=== PATIENT | male | born 1940 | race Caucasian/White ===

== ENCOUNTER 2016-08-27 10:45 | Inpatient (IN) | payer OTHER ==
[2016-08-27 11:31] LABS: MANUAL DIFF NEEDED? NO
[2016-08-27 11:37] LABS: BASO% 0.3 % (0.0-0.8); EOS# 0.28 X1000 (0.0-0.7); EOS% 3.7 % (0.0-10.0); HEMATOCRIT 42.5 % (42.0-52.0); HEMOGLOBIN 13.5 g/dL (14.0-18.0); IMM GRAN# 0.06 X1000 (0.0-0.04); IMM GRAN% 0.8 % (0.0-0.5); LYMPH# 0.82 X1000 (1.2-3.4); LYMPH% 10.7 % (20.5-51.1); MCHC 31.8 g/dL (33-37); MCV 91.2 FL (81-99); MONO% 9.1 % (1.7-9.3); MPV 12.7 FL (7.4-10.4); NEUT% 75.4 % (42.2-75.2); PLT 147 X1000 (130-400); RBC 4.66 XMIL (4.7-6.1)
[2016-08-27 11:49] LABS: INR 1.07; PROTIME 11.4 Seconds (9.2-11.7)
[2016-08-27 12:00] LABS: ALBUMIN 4.3 g/dL (3.5-5.0); CALCIUM 9.9 mg/dL (8.8-10.2); POTASSIUM 4.3 mmol/L (3.5-5.1); TOTAL BILIRUBIN 0.26 mg/dL (0.20-1.00); TOTAL PROTEIN 7.2 g/dL (6.3-8.3)
--- NOTE | 2016-08-27 12:49 | Diag Imaging Result Document ---
PROCEDURE NAME: HEAD/C-SPINE W/O CONTRAST - 08/27/2016 CT BRAIN AND CERVICAL SPINE WITHOUT CONTRAST. TECHNIQUE: Dose reduction technique not used. COMPARISON: Brain is compared to 03/19/2011. FINDINGS: No parenchymal hemorrhage. No epidural or subdural hematoma. No subarachnoid hemorrhage. No skull fracture. There is atrophy with chronic microvascular ischemic changes. No hydrocephalus. No sinus opacification and no air-fluid levels. IMPRESSION: No hemorrhage. No injury. CERVICAL SPINE WITHOUT CONTRAST. FINDINGS: There is reversal of the normal cervical spine. Degenerative changes are found throughout the cervical spine. No precervical soft tissue swelling. No subluxation. No fracture. IMPRESSION: No acute bony injury. A preliminary report was given at 12:15pm. [facility]
--- NOTE | 2016-08-27 12:50 | Diag Imaging Result Document ---
PROCEDURE NAME: CHEST-1 VIEW - 08/27/2016 CHEST SINGLE VIEW: COMPARISON: 10/28/2015. FINDINGS: There are sternal wires and surgical clips. The lungs are well expanded. The heart is mildly prominent. The vessels are not distended. There is a granuloma in the left lung. No contusions or pneumothoraces. The mediastinum is not widened. IMPRESSION: No injury.
--- NOTE | 2016-08-27 12:50 | Diag Imaging Result Document ---
PROCEDURE NAME: THORACIC SPINE - 08/27/2016 THORACIC SPINE AP AND LATERAL, 4 VIEWS: FINDINGS: There is mild to moderate scoliosis. Degenerative bone spurring is found throughout the thoracic spine. No compressed vertebra. No subluxation. IMPRESSION: No acute bony injury.
--- NOTE | 2016-08-27 12:53 | Diag Imaging Result Document ---
PROCEDURE NAME: KNEE 1-2 VIEWS-LEFT - 08/27/2016 LEFT KNEE 2 VIEWS: FINDINGS: There has been prior orthopedic replacement of the left knee. Good alignment to the femoral and tibial components. No acute fracture or dislocation. There are multiple surgical clips in the soft tissues of the distal thigh. IMPRESSION: No acute bony injury.
--- NOTE | 2016-08-27 12:59 | Diag Imaging Result Document ---
PROCEDURE NAME: PELVIS - 08/27/2016 PELVIS 2 VIEWS: FINDINGS: No fracture. No dislocation. IMPRESSION: No acute bony injury.
[2016-08-27] MEDS ORDERED: MORPHINE IV ONE (13:22)
[2016-08-27] MEDS ORDERED: ZOFRAN ONE (13:29)
--- NOTE | 2016-08-27 16:59 | Diag Imaging Result Document ---
PROCEDURE NAME: EXTREM LOWER W/O CONTRAST - 08/27/2016 CT LEFT KNEE WITHOUT CONTRAST. TECHNIQUE: Dose reduction technique not used. FINDINGS: There has been prior orthopedic replacement of the left knee. There is good alignment to the femoral and tibial components. These prostheses create a large amount of metallic artifact about the knee. No acute fracture identified although films are suboptimal due to the metallic artifact. Moderate atherosclerosis. IMPRESSION: Large amount of metallic artifact created from prior knee replacement. No acute bony injury identified on this limited exam. A preliminary report was given at 4:21 p.m. [facility]
--- NOTE | 2016-08-27 17:04 | PROVIDER DOCUMENTATION ---
[id number] - General Chief Complaint: Fall Stated Complaint: FALL, LT. KNEE PAIN/HIP PAIN Time Seen by Provider: 08/27/16 11:00 Source: patient, family Allergies/Adverse Reactions: Patient Allergies Allergy/AdvReac Type Severity Reaction Status Date / Time vancomycin Allergy RASH Verified 08/27/16 11:21 duloxetine HCl * AdvReac Severe seizures Verified 08/27/16 11:21 [From Cymbalta] Home Medications: Ezetimibe [Zetia] 10 mg PO DAILY 12/21/12 Levothyroxine [Synthroid] 100 microgm PO DAILY 12/21/12 PRAVAstatin [Pravachol] 80 mg PO QHS 12/21/12 Aspirin 81 mg PO DAILY 10/04/13 Chlorthalidone 50 mg PO DAILY 04/08/14 Fosinopril Sodium 40 mg PO DAILY 04/08/14 Glyburide 10 mg PO DAILY 04/08/14 Desvenlafaxine Succinate [Pristiq ER] 100 mg PO DAILY 10/28/15 Lorazepam [Ativan] 0.5 mg PO BID 10/28/15 Penicillin V Potassium [Pen Vk] 500 mg PO BID 10/28/15 Alfuzosin E.r. [Uroxatral] 10 mg PO QHS 12/02/15 Celecoxib [Celebrex] 200 mg PO QAM 12/02/15 Digoxin 125 mcg PO DAILY 12/02/15 Hydrocodone/Acetaminophen [[place] 10-325 Tablet] 1 each PO TID PRN PRN 12/02/15 Metoprolol Succinate E.r. [Toprol Xl] 50 mg PO DAILY 01/04/16 Furosemide [Lasix] 40 mg PO BID 08/27/16 Insulin Glargine [Lantus] 50 unit SUBQ QAM 08/27/16 Insulin Glargine [Lantus] 50 unit SUBQ QHS 08/27/16 Sitagliptin Phosphate [Januvia] 100 mg PO DAILY 08/27/16 - History of Present Illness -Trauma Nature of Presenting Problem: Tripped and fell at 0830 today in front of house and hit head on asphalt. L knee has been bothering him and felt unstable. Has appointment to see Dr Rausch next week. On [facility] for atrial fibrillation. Location of Pain/Injury: reports: head, back, lower extremity (L knee) Head Injury Location: reports: occipital Pain Radiation: reports: back, chest (back pain radiates into chest) Quality of Pain: reports: sharp Severity: reports: severe (L knee problems for several weeks. All other symptoms started today) Method of Injury: reports: fall Loss of Consciousness: no loss of consciousness Remembers:: reports: injury, coming to hospital Injury Associated Symptoms: reports: back/neck pain, unable to bear weight, other (L knee pain) Locality of Occurance: Home Review of Systems - Adult - REVIEW OF SYSTEMS - ADULT Constitutional: reports: no symptoms reported Eyes: reports: blurred vision Ears, Nose, Mouth & Throat: reports: no symptoms reported Cardiovascular: reports: no symptoms reported, other ( felt slightly dizzy at the time he fell). denies: chest pain, palpitations Hematologic/Lymphatic: reports: no symptoms reported Allergic/Immunologic: reports: no symptoms reported All Other Systems: Reviewed and Negative Past History - Adult - PAST MEDICAL HISTORY-ADULT Review of Records: reports: Nursing Assessment Review, Medications Reviewed Major Childhood Illnesses: reports: history unknown Cardiovascular: reports: HTN, hyperlipidemia Respiratory: reports: sleep apnea Genitourinary: reports: kidney stones Musculoskeletal: reports: chronic pain Neurological: reports: Seizures/Epilepsy Endocrine/Immune: reports: cancer (prostate), Diabetes, thyroid disorder Additional History: sleep apnea, gall stones, obesity, arthritis, neuropathy, - PRIOR SURGERIES/PROCEDURES Surgical/Procedure History: reports: CABG, joint replacement, back/neck, other ( jhonatan TKA, back, throat for sleep apnea) - IMMUNIZATION STATUS Childhood Immunizations: See Nurse Assessment Flu Vaccine: See Nurse Assessment Physical Exam-Injury Related - Physical Exam-Injury Related Initial Vital Signs Reviewed: Yes General Appearance: alert, moderate distress Eyes: PERRL/EOMI Head, Ears, Nose, Mouth & Throat: normal ENT inspection Neck: C-spine tenderness, tender lateral Respiratory: chest non-tender, lungs clear, normal breath sounds, no pleuratic chest pain Cardiovascular: regular rate, rhythm, no edema, no gallop, no murmur Abdominal Exam: normal bowel sounds, non tender, soft, no organomegaly Rectal Exam: deferred Lymphatic: no adenopathy Back Exam: normal inspection, no CVA tenderness, vertebral tenderness (lower thoracic spine mildly tender) Extremity: tenderness (over L knee, without abrasion or effusion) Integumentary: normal color, warm/dry Neurologic: grossly normal, no motor/sensory deficits Progress - PLAN OF CARE/RESULTS Progress/Plan/Lab Results: Laboratory Tests 08/27/16 08/27/16 08/27/16 11:16 11:16 11:16 WBC 7.67 RBC 4.66 L Hgb 13.5 L Hct 42.5 MCV 91.2 MCH 29.0 MCHC 31.8 L RDW Std Deviation 16.6 H Plt Count 147 MPV 12.7 H Immature Gran % (Auto) 0.8 H Neut % (Auto) 75.4 H Lymph % (Auto) 10.7 L [place] % (Auto) 9.1 Eos % (Auto) 3.7 Baso % (Auto) 0.3 Immature Gran # (Auto) 0.06 H Neut # 5.79 Lymph # 0.82 L [place] # 0.70 H Eos # 0.28 Baso # 0.02 PT 11.4 INR 1.07 Sodium 141 Potassium 4.3 Chloride 97 L Carbon Dioxide 26 Anion Gap 18 BUN 59 H Creatinine 2.9 H Estimated GFR/1.73 m2 21 BUN/Creatinine Ratio 20 Glucose 90 Calculated Osmolality 297 Calcium 9.9 Total Bilirubin 0.26 AST 27 ALT 20 Alkaline Phosphatase 63 Total Protein 7.2 Albumin 4.3 Globulin 2.9 Albumin/Globulin Ratio 1.5 Blood Type Antibody Screen 08/27/16 11:16 WBC RBC Hgb Hct MCV MCH MCHC RDW Std Deviation Plt Count MPV Immature Gran % (Auto) Neut % (Auto) Lymph % (Auto) [place] % (Auto) Eos % (Auto) Baso % (Auto) Immature Gran # (Auto) Neut # Lymph # [place] # Eos # Baso # PT INR Sodium Potassium Chloride Carbon Dioxide Anion Gap BUN Creatinine Estimated GFR/1.73 m2 BUN/Creatinine Ratio Glucose Calculated Osmolality Calcium Total Bilirubin AST ALT Alkaline Phosphatase Total Protein Albumin Globulin Albumin/Globulin Ratio Blood Type A POSITIVE Antibody Screen NEGATIVE - REASSESSMENT Reassessment #1 Time Reassessed: 14:00 Reassessment Comment: unable to stand- check CTknee Reassessment #2 Time Reassessed: 16:00 Reassessment Comment: unable to stand, unsafe at home pt and family want admit, Dr Luna to see pt - EKG 1 Time of EKG reading by physician:: 14:00 EKG Read and Signed by:: Heather Ordonez EKG Interpretation (*Must complete 3 of following elements*): Abnormal Rate: 65 Rhythm: junctional rhythm [place]: normal QRS: normal ST Wave: depressed, non-specific ST changes (seen on prior ekg) - CONSULTS/PCP/HOSPITALIST Notification #1 *Consult/PCP/Hospitalist*: Dr aRyo Time Discussed: 16:00 Reason/Comments: unsafe at home, unable to stand, disscussed unsure insurance coverage Consult Disposition: Will see in ED, Admit - CHANGE OF SHIFT REPORT (ED Provider) Tentative Impression of Patient: thoracic spine strain, L knee contusion, head injury Departure - Departure Time of Disposition Order: 16:00 DIAGNOSIS: Knee contusion, Head injury, Back strain Disposition: ADMITTED INPATIENT 09 Certified Medical Emergency: Emergent Condition: Fair
[2016-08-27] MEDS ORDERED: NORCO-10 PO PRN (17:19)
[2016-08-27] MEDS: NORCO-7.5 PO PRN (20:56)
[2016-08-27] MEDS: UROXATRAL PO SCH (20:57)
[2016-08-27] MEDS: PRAVACHOL PO SCH (20:57)
[2016-08-27] MEDS: ATIVAN PO SCH (20:57)
[2016-08-27] MEDS: ELIQUIS PO SCH (20:57)
[2016-08-27] MEDS: PEN VK PO SCH (20:58)
--- NOTE | 2016-08-27 21:13 | HISTORY AND PHYSICAL ---
HISTORY OF PRESENT ILLNESS: Mr. Hernandez is a 76-year-old, presented to emergency room. He hurt his knee and he cannot get up. He fell at home and could not get up. It took him an hour and a half. His daughters brought him here to the emergency room. His left knee is very sore. Very heavy man. He recently twisted that knee and just not able to ambulate he lives alone. He has. PAST MEDICAL HISTORY: 1. Coronary artery disease. 2. Diabetes mellitus type 2. 3. Morbid obesity. 4. Hypothyroidism. 5. Obstructive sleep apnea. 6. Dyslipidemia. 7. Chronic back pain. 8. He has had recurrent cellulitis and he is put on just penicillin every day which he has done for last couple years. 9. Atrial fibrillation. 10. Small finger on his right hand fracture with H pin placed. 11. He has a sleep apnea machine at night. 12. Bilateral cellulitis, no active cellulitis at this time. PAST SURGICAL HISTORY: 1. CABG x3. 2. Bilateral total knee arthroplasties. 3. Triple bypass. 4. Back surgery 20 years ago. 5. Sleep apnea. FAMILY HISTORY: Is noncontributory. SOCIAL HISTORY: . He has very attentive 2 daughters and he also has a son, 2 daughters were at the bedside. ALLERGIES: VANCOMYCIN, CYMBALTA CAUSES SEIZURES ACCORDING TO REPORT. REVIEW OF SYSTEMS: General: He did not give any report of chest pain or fever or chills. He has generalized myalgias and arthralgias. He is hurting in his back and he is hurting in his left knee specifically. Respiratory: No increased work of breathing or dyspnea. Cardiovascular: Denies any chest pain. GI/: Does not complain of any new symptoms, change in bowels, gross hematuria. Musculoskeletal/Neurologic: Just general aching and myalgia. PHYSICAL EXAM TODAY: Vital signs: Temp 98.1 degrees, pulse 58, respirations 18, blood pressure 105/46. Pupils: Equal, round. Lungs: Clear in all lung aranda. Cardiovascular: Regular rhythm, rate without murmur or S3. Abdomen: Soft. Skin: Warm and dry. O2 saturations 96%. LAB: White count 7670, hematocrit 42, platelet count 147,000. Sodium 141, potassium 4.3, chloride 97, bicarb 26, BUN 59, creatinine 2.9. Transaminases unremarkable. Calcium 9.9, albumin was 4.3. Looking at his baseline creatinine I see where it was 1.5 back in March 2014, it was 2.0 in April 2015 and 2.0 again in December 2015 so I think is baseline is about 1.8-2.0. LIST OF MEDICATIONS: Lantus Pen 50 units 2 times a day, Januvia 100 mg q.a.m., digoxin 125 mcg daily, chlorthalidone 50 mg each morning, furosemide 40 mg in the morning and 4 p.m., levothyroxine 100 mcg daily, Pristiq ER 100 mg each morning, aspirin 81 mg in the morning, Zetia 10 mg in the morning, [place] 10/325 at 8 and 4 and bedtime, glyburide 5 mg 2 tablets every morning so I think that is 10 mg in the morning, metoprolol ER half of 100 mg or 50 mg every morning, Eliquis 5 mg 1 tablet q.a.m., fosinopril which is an GODWIN inhibitor 40 mg q.a.m., Celebrex 200 mg every morning, lorazepam 0.5 mg in the morning and 4 p.m., penicillin 500 mg q.a.m. at bedtime, pravastatin 80 mg bedtime, alfuzosin ER 10 mg each bedtime, trazodone 100 mg at bedtime. ALLERGIES: HE GETS RED MAN SYNDROME WHEN GIVEN VANCOMYCIN AND DULOXETINE APPARENTLY CAUSES SEIZURES. ASSESSMENT AND PLAN: 1. General weakness and deconditioning. Left knee pain, recent knee strain, unable to walk and complicated by his morbid obesity. He will need to come in the hospital. Will need to see if we can get him set up to go to rehab in hopes to get him back to independent living. 2. Morbid obesity. 3. Diabetes mellitus type 2. Will pattern his sugars, put him on sliding scale, continue his current medicine including Lantus, Januvia, glyburide. 4. He is on Eliquis and he is on digitalis and so I am assuming there is a history of atrial fibrillation. I will try and question for further past medical history but will continue these medications. 5. He has had both knees arthroplasty left knee recently hurt, no sign of fracture radiographically, will ask orthopedics to evaluate as well. He is in obvious pain cannot support weight on it at this time. 6. Coronary artery disease status post triple bypass surgery. 7. History of sleep apnea. 8. Yeah I so see that history of atrial fibrillation. I think he has had episodes of rapid ventricular rate in the past.
[2016-08-28] MEDS: LANTUS SUBQ SCH ×3 (00:17→23:50)
[2016-08-28] MEDS: HUMULIN R SUBQ SCH ×5 (00:25→23:51)
[2016-08-28] MEDS: NORCO-7.5 PO PRN ×5 (01:08→21:40)
[2016-08-28 06:32] LABS: MANUAL DIFF NEEDED? NO
[2016-08-28 06:44] LABS: INR 1.09; PROTIME 11.6 Seconds (9.2-11.7); PTT 26.4 Seconds (22.0-36.0)
[2016-08-28 06:46] LABS: HEMOGLOBIN A1C 8.1 % (4.8-6.0)
[2016-08-28 06:51] LABS: BASO% 0.1 % (0.0-0.8); EOS# 0.28 X1000 (0.0-0.7); EOS% 4.2 % (0.0-10.0); HEMATOCRIT 36.1 % (42.0-52.0); HEMOGLOBIN 11.3 g/dL (14.0-18.0); LYMPH# 0.66 X1000 (1.2-3.4); LYMPH% 9.9 % (20.5-51.1); MCHC 31.3 g/dL (33-37); MCV 92.6 FL (81-99); MONO# 0.76 X1000 (0.11-0.59); MONO% 11.4 % (1.7-9.3); MPV 12.4 FL (7.4-10.4); NEUT% 74.4 % (42.2-75.2); PLT 137 X1000 (130-400)
[2016-08-28 07:12] LABS: FREE T4 0.77 ng/dL (0.93-1.70)
[2016-08-28 07:15] LABS: ALBUMIN 3.5 g/dL (3.5-5.0); CALCIUM 8.9 mg/dL (8.8-10.2); MAGNESIUM 2.5 mg/dL (1.5-2.7); POTASSIUM 4.6 mmol/L (3.5-5.1); TOTAL BILIRUBIN 0.34 mg/dL (0.20-1.00); TOTAL PROTEIN 6.3 g/dL (6.3-8.3)
[2016-08-28] MEDS: PRILOSEC PO SCH (07:42)
[2016-08-28] MEDS: DIABETA PO SCH (09:03)
[2016-08-28] MEDS: PEN VK PO SCH ×2 (09:03→21:41)
[2016-08-28] MEDS: ELIQUIS PO SCH ×2 (09:04→23:49)
[2016-08-28] MEDS: SYNTHROID PO SCH (09:04)
[2016-08-28] MEDS: TOPROL XL PO SCH (09:04)
[2016-08-28] MEDS: JANUVIA PO SCH (09:04)
[2016-08-28] MEDS: ZETIA PO SCH (09:05)
[2016-08-28] MEDS: LANOXIN PO SCH (09:05)
[2016-08-28] MEDS: MONOPRIL PO SCH (09:05)
[2016-08-28] MEDS: ASPIRIN PO SCH (09:05)
[2016-08-28] MEDS: PRISTIQ ER PO SCH (09:05)
[2016-08-28] MEDS: ATIVAN PO SCH ×2 (09:13→23:52)
--- NOTE | 2016-08-28 16:33 | PROGRESS NOTE ---
DATE: 08/28/2016 SUBJECTIVE: Sitting up on the side of the bed. His left knee is still pretty sore, cannot bear weight on it. There is circumferential swelling in that left knee. OBJECTIVE: Vital signs: Temp 98.1 degrees, pulse 60, respirations 18, blood pressure 105/39. Lungs: Clear in all lung aranda. Cardiovascular: Regular rhythm and rate without murmur or S3. Abdomen: Soft. Skin: Warm and dry. Intake and output: Good urine output. LAB: Reviewed from today. White count 6,680, hematocrit 36, platelet count 137,000. Blood sugars 166, 249. ASSESSMENT: 1. General weakness. 2. Deconditioning. 3. Left knee pain. Unable to walk and bear weight. 4. Obesity. PLAN: A CT of the lower extremity done yesterday, large amount of metallic artifact created from prior knee replacement. No acute injury identified. Son was asking about the possibility of an MRI of his knee. I told him we will wait. I do know if he is eligible for that. Dr. Raymond is the 1 who operated on both knees so we can see what he says about that. I think he is going to need physical therapy. We are going to have to encourage him to pursue some weight loss as well. In looking over his medications, I do not see any changes. His legs look good. No flare-up of cellulitis. Blood pressures appear well controlled. His appetite is good; apparently he is eating well.
[2016-08-28] MEDS: PRAVACHOL PO SCH (21:42)
[2016-08-28] MEDS: UROXATRAL PO SCH (21:42)
--- NOTE | 2016-08-28 22:35 | CONSULTATION ---
DATE OF CONSULTATION: 08/28/2016 CHIEF COMPLAINT: Left knee pain after a fall. HISTORY: Patient reports that he has experienced debilitating left knee pain since a fall that occurred yesterday morning. He has been unable to ambulate. He presented to the emergency department and was evaluated. He has had a x-ray done as well as a CT done. He has a history of a total knee arthroplasty done greater than [address] Breen. He reports that knee has been in good condition until about 6 months ago when he started having some pain and difficulties ambulating. He actually had an appointment to see Dr. Rausch next week but experienced the fall that was reported yesterday morning and he has been unable to ambulate since. He complains of mostly anterior knee pain. He has undergone x-ray and CT both of which were negative. He reports no fevers or chills or suggestions of history of any type of infection around this prosthesis. PAST MEDICAL HISTORY: He has had coronary artery disease, diabetes mellitus type 2, obesity, hypothyroidism, obstructive sleep apnea, dyslipidemia, chronic back pain. He has had a history of cellulitis, atrial fibrillation, hand fracture which required pinning. Has had coronary artery bypass grafting surgery x3. He has had bilateral total knee arthroplasties. He has had a back surgery greater than 20 years ago. SOCIAL HISTORY: He is a . He has a son who is at the bedside with him. ALLERGIES: VANCOMYCIN, CYMBALTA. REVIEW OF SYSTEMS: He denies recent cold, cough, fevers, chills, chest pain, shortness of breath. He has no suggestion this was a syncopal episode that he had yesterday. EXAM: General: Pleasant male who is in no distress. HEENT: Conjunctivae pink. Mucous membranes are moist. Neck: Supple without JVD. Heart: Regular. Lungs: His respirations are nonlabored. Extremities: His left knee reveals ecchymosis to the anterior knee. He has no bony tenderness along the distal femur or along the proximal tibia. He has no pain along the patella. The quad tendon has a defect at its attachment at the superior pole of patella. There is no pain or defect noted in the patellar ligament. When I asked him to perform a straight leg raise he is able to initiate this but the knee immediately goes into flexion and he has the inability to extend the knee with quad mechanism. Neurological: He is alert, oriented. ASSESSMENT/PLAN: Left leg quad tendon rupture. This was not seen on CT or x-ray. CT did not show it probably because of the artifact from the total knee arthroplasty. Will ask radiology to perform a musculoskeletal ultrasound of the quad tendon tomorrow to verify rupture. This will need surgical repair. Will keep him NPO after midnight. Dr. Rausch or group will evaluate him tomorrow.
[2016-08-29] MEDS: NORCO-7.5 PO PRN ×3 (01:52→10:00)
--- NOTE | 2016-08-29 05:54 | EKG Report ---
Test Performed on : 08/28/2016 06:17:10 AM Test Reason : fall;cardiac hx Blood Pressure : / mmHG Vent. Rate : 068 BPM Atrial Rate : 258 BPM P-R Int : 000 ms QRS Dur : 102 ms QT Int : 388 ms P-R-T Axes : 000 066 255 degrees QTc Int : [address] & T wave abnormality, consider inferior ischemia ST & T wave abnormality, consider anterolateral ischemia Abnormal ECG When compared with ECG of 27-AUG-2016 12:18, (Unconfirmed) Current undetermined rhythm precludes rhythm comparison, needs review Confirmed by Linda Thornton MD ([id number]) on 08/29/2016 1:12:51 PM
[2016-08-29] MEDS: HUMULIN R SUBQ SCH ×2 (06:14→12:50)
[2016-08-29] MEDS: PRILOSEC PO SCH (06:15)
--- NOTE | 2016-08-29 08:49 | EKG Report ---
Test Performed on : 08/27/2016 12:18:47 PM Test Reason : fall Blood Pressure : / mmHG Vent. Rate : 065 BPM Atrial Rate : 065 BPM P-R Int : 000 ms QRS Dur : 108 ms QT Int : 380 ms P-R-T Axes : 000 052 215 degrees QTc Int : [address] & T wave abnormality, consider inferior ischemia ST & T wave abnormality, consider anterolateral ischemia Abnormal ECG When compared with ECG of 05-JAN-2016 09:41, Junctional rhythm. has replaced Atrial fibrillation. ST now depressed in Anterior leads Unconfirmed Result
[2016-08-29] MEDS: ASPIRIN PO SCH (10:02)
[2016-08-29] MEDS: SYNTHROID PO SCH (10:03)
[2016-08-29] MEDS: ZETIA PO SCH (10:03)
[2016-08-29] MEDS: TOPROL XL PO SCH (10:03)
[2016-08-29] MEDS: PRISTIQ ER PO SCH (10:04)
[2016-08-29] MEDS: PEN VK PO SCH (10:04)
[2016-08-29] MEDS: MONOPRIL PO SCH (10:04)
[2016-08-29] MEDS: LANTUS SUBQ SCH (10:05)
[2016-08-29] MEDS: LANOXIN PO SCH (10:05)
[2016-08-29] MEDS: JANUVIA PO SCH (10:05)
[2016-08-29] MEDS: DIABETA PO SCH (10:06)
[2016-08-29] MEDS: ELIQUIS PO SCH (10:06)
[2016-08-29] MEDS: ATIVAN PO SCH (10:06)
[2016-08-29] MEDS ORDERED: MARCAINE 0.5% PF ONE (14:35)
[2016-08-29] MEDS ORDERED: KEFZOL 2 GM/D5W 50 ML ONE (14:35)
[2016-08-29] MEDS ORDERED: CLAVE SECONDARY SET 11953 ONE (14:35)
[2016-08-29] MEDS ORDERED: NEOSPORIN G.U. IRRIGANT ONE (14:35)
[2016-08-29] MEDS ORDERED: VERSED ONE (16:49)
[2016-08-29] MEDS ORDERED: DIPRIVAN 1% ONE (16:49)
[2016-08-29] MEDS ORDERED: FENTANYL ONE (16:56)
[2016-08-29] MEDS ORDERED: DILAUDID ONE (17:08)
[2016-08-29] MEDS ORDERED: NS 1,000 ML ONE (17:20)
--- NOTE | 2016-08-29 17:36 | PROGRESS NOTE ---
DATE: 08/29/2016 SUBJECTIVE: Dr. Rausch had seen him. He is planning on per fixing the quadriceps tendon. Apparently quadriceps tendon tear in the left leg. He is comfortable at present time as long as he does not move the knee. Daughter was at the bedside. He has remained afebrile. OBJECTIVE: Vital signs: Temperature 98.3 degrees, pulse 67, respirations 15, blood pressure 135/72. Lungs: Are clear in all lung aranda. Cardiovascular: Regular rhythm and rate without murmur or S3. Abdomen: Soft. Skin: Is warm and dry. LABORATORIES: Reviewed from yesterday. Blood sugars 193, 172, 153. ASSESSMENT AND PLAN: 1. Left leg quad tendon rupture. It was not seen on CT or x-ray. CT did not show it probably because of artifact from total knee arthroplasty. I think they were going to do a musculoskeletal ultrasound of the quad tendon tomorrow or today. Dr. Rausch planned to do repair today. 2. Obesity. 3. Deconditioning, weakness, especially in the lower extremities. Suspect he will need to go to rehab. 4. History of diabetes mellitus type 2. Sugars under good control. Coronary artery disease history. History of obstructive sleep apnea. History of chronic back pain. History of atrial fibrillation.
--- NOTE | 2016-08-29 20:14 | OPERATIVE NOTE ---
PROCEDURE DATE: 08/29/2016 PREOPERATIVE DIAGNOSIS: Left quadriceps tendon rupture. POSTOP DIAGNOSIS: Left quadriceps tendon rupture. PROCEDURE PERFORMED: Left quadriceps tendon repair. ANESTHESIA: General. SURGEON: Allan Rausch MD. MATERIAL FLOW ANALYST: Kassandra. COMPLICATIONS: None. BLOOD LOSS: Minimal. DESCRIPTION OF PROCEDURE: The patient was brought to operative suite and placed supine position. After satisfactory administration of general anesthesia, well-padded tourniquet was placed left proximal thigh. Left lower extremity was prepped and draped in usual sterile fashion. Leg was exsanguinated. Tourniquet insufflated to 350 torr. A longitudinal incision was made overlying the quadriceps tendon rupture, dissected sharply through the skin. Skin flaps were elevated medially and laterally. The quadriceps tendon was freshened. The insertion site on the superior pole patella was debrided with a rongeur back to bleeding bone. Three drill holes were placed through the patella and then 2 #5 FiberWire sutures were passed in quadriceps tendon Krackow-type fashion. These were passed through the through 3 drill holes and then tied on the inferior aspect of the patella. Excellent repair of the quadriceps tendon was repaired. The medial and lateral retinaculum were repaired with 0 Vicryl as well as 2-0 FiberWire sutures and then the skin edge approximated with 2-0 Vicryl. Skin was closed with skin michael and a sterile dressing was applied. The wound was injected with Marcaine and a sterile dressing was applied. The patient tolerated the procedure well without complication. At the end of the procedure all counts correct x2. The patient was transferred to the recovery room in stable condition. [facility]
[2016-08-30] MEDS: KEFZOL 1 GM/D5W 50 ML IV SCH ×3 (00:50→15:09)
[2016-08-30] MEDS: MORPHINE IV PRN (02:12)
[2016-08-30] MEDS: ATIVAN PO SCH ×3 (05:02→21:31)
[2016-08-30] MEDS: HUMULIN R SUBQ SCH ×6 (05:02→21:32)
[2016-08-30] MEDS: PRAVACHOL PO SCH ×2 (05:03→21:31)
[2016-08-30] MEDS: UROXATRAL PO SCH ×2 (05:03→21:31)
[2016-08-30] MEDS: PEN VK PO SCH ×3 (05:04→21:31)
[2016-08-30] MEDS: LANTUS SUBQ SCH ×3 (05:04→21:31)
[2016-08-30] MEDS: PERIDEX MT SCH ×3 (05:04→21:31)
[2016-08-30] MEDS: ELIQUIS PO SCH ×3 (05:05→21:31)
[2016-08-30] MEDS: NS 1,000 ML IV SCH ×2 (06:25→21:30)
[2016-08-30] MEDS: PRILOSEC PO SCH (06:26)
[2016-08-30] MEDS: PERCOCET-10 PO PRN ×4 (06:26→17:08)
[2016-08-30] MEDS ORDERED: LIDOCAINE SYRINGE ONE (08:05)
[2016-08-30] MEDS ORDERED: EPHEDRINE ONE (08:05)
[2016-08-30] MEDS ORDERED: LR 2,000 ML ONE (08:06)
[2016-08-30] MEDS ORDERED: ANESTHESIA PB SET 88 IN 5742 ONE (08:06)
[2016-08-30] MEDS ORDERED: EXTENSION SET 32 IN 4522 ONE (08:06)
[2016-08-30] MEDS ORDERED: QUELICIN (DOSE) ONE (08:06)
[2016-08-30] MEDS ORDERED: CLAVE SECONDARY SET 11953 ONE (08:06)
[2016-08-30] MEDS ORDERED: ZEMURON ONE (08:06)
[2016-08-30] MEDS: MONOPRIL PO SCH (08:47)
[2016-08-30] MEDS: ASPIRIN PO SCH (08:48)
[2016-08-30] MEDS: TOPROL XL PO SCH (08:48)
[2016-08-30] MEDS: JANUVIA PO SCH (08:48)
[2016-08-30] MEDS: PRISTIQ ER PO SCH (08:48)
[2016-08-30] MEDS: SYNTHROID PO SCH (08:48)
[2016-08-30] MEDS: ZETIA PO SCH (08:48)
[2016-08-30] MEDS: DIABETA PO SCH (08:48)
[2016-08-30] MEDS: LANOXIN PO SCH (08:50)
--- NOTE | 2016-08-30 13:16 | PROGRESS NOTE ---
DATE: 08/30/2016 SUBJECTIVE: Fam Hernandez is a 76-year-old male postoperative day 1 from a left quadriceps tendon repair. He states it is much improved as far as pain is concerned. Physical therapy worked with him this morning, got him up on the side of the bed. OBJECTIVE: General: Mr. Hernandez is alert, oriented, and cooperative with the exam. Vital signs: Stable. He is afebrile. Extremities: His leg is neurovascularly intact. His dressing is clean, dry, and intact. ASSESSMENT: Stable followup after left quadriceps tendon repair. PLAN: We will plan on continuing physical therapy. He is not bend his leg. He is to keep it out straight in the knee immobilizer. We will change the dressing likely tomorrow.
[2016-08-30] MEDS ORDERED: INSULIN PEN NEEDLES ONE (15:45)
--- NOTE | 2016-08-30 17:21 | PROGRESS NOTE ---
DATE: 08/30/2016 SUBJECTIVE: Today Mr. Hernandez referred to be doing okay. Still complained of some discomfort in the left knee. Was seen by orthopedics this morning. OBJECTIVE: Vital Signs: Stable. Blood pressure 142/53, pulse 72, respirations 16, temperature is 97.5 degrees. General: Mr. Hernandez, 76-year-old male, very obese, BMI 43.1, was in bed. Not seemingly distressed. HEENT: Mucosa is pink and moist. Anicteric. Acyanotic. Neck: Supple. Chest: Clear. Cardiovascular: Regular rate and rhythm. No murmurs, no rubs. No gallops. Abdomen: Distended but nontender. 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 No focal neurological deficit. Extremities: The left one is still immobilized and the knee is wrapped up in Band-Aid. The left knee has an old surgical scar over the knee consistent with a history of knee replacement. CURRENT MEDICATIONS: Include. 1. Apixaban 5 mg b.i.d. 2. Uroxatral 10 mg at bedtime. 3. Pristiq 100 mg daily a 10 mg daily. 4. Zetia 10 mg daily. 5. Monopril 40 mg daily. 6. Glyburide 10 mg daily. 7. Lantus 50 units b.i.d. 8. Sliding scale. 9. Levothyroxine 100 mcg daily. 10. Metoprolol 50 mg daily. 11. Omeprazole. 12. Sitagliptin. 13. [place]. ASSESSMENT: 1. Left leg quadriceps tendon rupture status post repair. Today is day 1 postop. Patient seems to be doing remarkably fine. Has been evaluated by Orthopedics. Will continue with the further recommendations. Patient is to start physical rehabilitation and will be planning his discharge to a rehab facility. 2. Morbid obesity noted. 3. Diabetes mellitus type 2 on insulin. A1c was 8.1 on presentation. Will continue with the current regimen. 4. Hypothyroidism stable on Synthroid. 5. 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 Creatinine has worsened a little bit but patient is making adequate urine. Will keep eye on this.
[2016-08-31] MEDS: PERCOCET-10 PO PRN ×3 (02:49→11:44)
[2016-08-31 05:56] LABS: MANUAL DIFF NEEDED? NO
[2016-08-31 05:59] LABS: BASO% 0.2 % (0.0-0.8); EOS# 0.24 X1000 (0.0-0.7); EOS% 3.8 % (0.0-10.0); HEMATOCRIT 34.2 % (42.0-52.0); HEMOGLOBIN 10.5 g/dL (14.0-18.0); LYMPH# 0.45 X1000 (1.2-3.4); LYMPH% 7.1 % (20.5-51.1); MCH 28.4 PG (27-31); MCHC 30.7 g/dL (33-37); MCV 92.4 FL (81-99); MONO# 0.76 X1000 (0.11-0.59); NEUT% 76.9 % (42.2-75.2); PLT 158 X1000 (130-400)
[2016-08-31 06:25] LABS: CALCIUM 8.3 mg/dL (8.8-10.2)
[2016-08-31] MEDS: HUMULIN R SUBQ SCH ×3 (06:25→17:05)
[2016-08-31] MEDS: PRILOSEC PO SCH (06:26)
[2016-08-31 06:53] LABS: DIGOXIN 0.9 ng/mL (0.9-2.0)
[2016-08-31] MEDS: PERIDEX MT SCH ×2 (08:22→23:54)
[2016-08-31] MEDS: MONOPRIL PO SCH (08:22)
[2016-08-31] MEDS: SYNTHROID PO SCH (08:23)
[2016-08-31] MEDS: LANOXIN PO SCH (08:23)
[2016-08-31] MEDS: ELIQUIS PO SCH ×2 (08:24→23:52)
[2016-08-31] MEDS: TOPROL XL PO SCH (08:24)
[2016-08-31] MEDS: ZETIA PO SCH (08:24)
[2016-08-31] MEDS: ASPIRIN PO SCH (08:24)
[2016-08-31] MEDS: ATIVAN PO SCH (08:24)
[2016-08-31] MEDS: PEN VK PO SCH ×2 (08:24→23:52)
[2016-08-31] MEDS: DIABETA PO SCH (08:25)
[2016-08-31] MEDS: PRISTIQ ER PO SCH (08:25)
[2016-08-31] MEDS: JANUVIA PO SCH (08:25)
[2016-08-31] MEDS: LANTUS SUBQ SCH (08:28)
[2016-08-31] MEDS: MORPHINE IV PRN (09:22)
[2016-08-31] MEDS: NS 1,000 ML IV SCH (13:35)
--- NOTE | 2016-08-31 13:42 | PROGRESS NOTE ---
DATE: 08/31/2016 SUBJECTIVE: Fam Hernandez is a 76-year-old male who is postoperative day 2 from a left quadriceps tendon repair. He is sleeping. His daughter tells me that he is complaining of back pain. He has not been able to mobilize due to back pain. They wish to have an MRI obtained of his back. OBJECTIVE: His vital signs are stable. He is afebrile. His hematocrit is 34.2%. His leg is neurovascularly intact. He has tenderness ini the lumbar spine. ASSESSMENT: Low back pain and left quadriceps tendon repair. PLAN: We will change his dressing today and check on his back. I am certainly okay with ordering an MRI of his lumbar spine if other members of the team feel that is warranted. He has been able to move with therapy.
--- NOTE | 2016-08-31 15:18 | Diag Imaging Result Document ---
PROCEDURE NAME: LUMBAR SPINE 2-VIEWS - 08/31/2016 PLAIN RADIOGRAPH OF THE LUMBAR SPINE 2 VIEWS: COMPARISON: None available. FINDINGS: There is degenerative disk disease at virtually every lumbar level with loss of disk space height and marginal osteophyte formation. There is suggestion of vacuum disk phenomenon at least at L2-3 and L3-4. There is no definite fracture, subluxation, or intrinsic osseous lesion, otherwise. The vertebral body heights are relatively well maintained. Surrounding soft tissues are unremarkable. IMPRESSION: Extensive multilevel degenerative change. No definite acute osseous abnormality.
[2016-08-31] MEDS ORDERED: INSULIN PEN NEEDLES ONE (15:53)
[2016-08-31] MEDS ORDERED: MORPHINE IV PRN (16:54)
[2016-08-31] MEDS ORDERED: PERCOCET-10 PO PRN (16:54)
--- NOTE | 2016-08-31 17:20 | PROGRESS NOTE ---
DATE: 08/31/2016 SUBJECTIVE: This afternoon I saw Mr. Hernandez. He was just drowsy and zoned out. He has hardly been able to participate with physical therapy. OBJECTIVE: Vital signs: Blood pressure is 133/61, pulse of 95, respirations 18 , temperature 98.9 degrees. General: Mr. Hernandez is a 76-year-old male. He was in bed. Did not seem to be in any distress. HEENT: Mucosa was pink and moist. Anicteric. Acyanotic. Neck: Supple. Chest: Clear. Cardiovascular: Regular rate and rhythm. Abdomen: Soft, distended, but nontender. SENIOR RADIATION THERAPIST: The patient was just drowsy. He was easily arousable but would just fall back to sleep. Extremities: The left one is still in immobilizing and the knee was wrapped in a bandage. DIAGNOSTIC STUDIES: The lumbar x-ray ordered by Dr. Rausch this morning show extensive multilevel degenerative changes. No definite acute osseous pathology. ASSESSMENT AND PLAN: 1. Altered mental status which I think is related to all of the narcotics and sedatives that the patient is getting. I have therefore reduce the frequency of the Percocet to only 1 q.4, the morphine to 2 mg q.4 p.r.n., and I have discontinued the benzodiazepine. 2. Left right quadriceps tendon rupture status post repair. Today is day 2 postop. 3. Morbid obesity. 4. Diabetes mellitus. The patient's A1c was 8.1. Will continue with the insulin. I have discontinue glipizide and citalopram, the sitagliptin, because of the kidney disease. This will hang around in the blood for a longer period of time and probably cause hypoglycemia. So for now, we will control the glucose with insulin. 5. Hypothyroidism, on Synthroid. Stable. 6. Chronic kidney disease stage 3B to 4. Will continue observing. I think the creatinine is stable, so there is no alarm to consult nephrology. 7. Atrial fibrillation. The patient is on digoxin. Currently rate controlled. Digoxin level is 0.9 which is acceptable. Will continue with the current medications. Eliquis anticoagulation for the atrial fibrillation. We will continue with the same. 8. Dyslipidemia. Will continue with statin. 9. Severe lower Lumbar spine Degenerative disease: noted on xray today. symptomatic therapy with PT MTDD
[2016-08-31] MEDS: PRAVACHOL PO SCH (23:51)
[2016-08-31] MEDS: UROXATRAL PO SCH (23:52)
[2016-09-01] MEDS: LANTUS SUBQ SCH ×2 (04:50→08:45)
--- NOTE | 2016-09-01 05:42 | EKG Report ---
Test Performed on : 09/01/2016 01:13:58 AM Test Reason : THREE RUN BEATS OF PVCs Blood Pressure : / mmHG Vent. Rate : 064 BPM Atrial Rate : 064 BPM P-R Int : 240 ms QRS Dur : 100 ms QT Int : 380 ms P-R-T Axes : 000 070 214 degrees QTc Int : 392 ms Sinus rhythm. with 1st degree AV block. ST & T wave abnormality, consider inferior ischemia ST & T wave abnormality, consider anterolateral ischemia Abnormal ECG When compared with ECG of 28-AUG-2016 06:17, Sinus rhythm. has replaced Junctional rhythm. Confirmed by Norberto MENDEZ, MAlbert Sierra ([id number]) on 09/01/2016 7:44:39 AM
[2016-09-01] MEDS: NS 1,000 ML IV SCH ×3 (06:03→17:05)
[2016-09-01] MEDS: HUMULIN R SUBQ SCH ×4 (06:07→17:04)
[2016-09-01] MEDS: PEN VK PO SCH (08:32)
[2016-09-01] MEDS: MONOPRIL PO SCH (08:32)
[2016-09-01] MEDS: TOPROL XL PO SCH (08:33)
[2016-09-01] MEDS: PRISTIQ ER PO SCH (08:33)
[2016-09-01] MEDS: ELIQUIS PO SCH (08:33)
[2016-09-01] MEDS: ASPIRIN PO SCH (08:34)
[2016-09-01] MEDS: ZETIA PO SCH (08:34)
[2016-09-01] MEDS: LANOXIN PO SCH (08:35)
[2016-09-01] MEDS: PERIDEX MT SCH (08:35)
[2016-09-01] MEDS: SYNTHROID PO SCH (08:35)
--- NOTE | 2016-09-01 10:58 | PROGRESS NOTE ---
DATE: 09/01/2016 SUBJECTIVE: Fam Hernandez is a 76-year-old male with low back pain and status post a left quadriceps tendon repair. He continues to complain of low back pain as well. He has minimal complaints as far as his knee is concerned. OBJECTIVE: General: He is well-developed, well-nourished male. He is alert and cooperative exam. Musculoskeletal: He has some lower back tenderness. No radicular symptoms. His wound of his knee is clean, dry, and intact. His legs are neurovascularly intact. DIAGNOSTIC STUDIES: His lower lumbar x-rays showed degenerative disk disease but normal alignment and no evidence of acute injury. IMPRESSIONS: 1. Lumbar strain. 2. Left quadriceps tendon repair. PLAN: We are trying to get his pain medicines square as he was quite confused and sleepy yesterday with too much sedation. We are going to discontinue the morphine and stick with Ativan and Percocet. As far as his knee is concerned, he can weight-bear in the knee immobilizer. He will likely go to rehab later in the week or possibly even next week.
[2016-09-01] MEDS ORDERED: ATIVAN PO ONE (13:03)
--- NOTE | 2016-09-01 16:48 | PROGRESS NOTE ---
DATE: 09/01/2016 SUBJECTIVE: This morning, Mr. Hernandez was a little bit more alert and more conversational than yesterday. He continues to be slightly drowsy though. OBJECTIVE: Vital signs: Blood pressure 136/51, pulse around 61, respirations 20, temperature 99.3 degrees. The patient was saturating 97% on nasal cannula oxygenation. General Examination: Mr. Hernandez is a 76-year-old male. He was in bed. Not seemingly distressed. HEENT: Mucosa is pink and moist. Anicteric. Acyanotic. Neck: Supple. Chest: Clear. Cardiovascular: Regular rate and rhythm. Abdomen: Non-distended, nontender. No hepatosplenomegaly. FIELD IRONWORKER: Patient continues to be slightly drowsy, but is more arousable now than yesterday and he is able to follow some basic commands. LABORATORY DATA: Glucose 150. ASSESSMENT: 1. Altered mental status, likely due to global encephalopathy from narcotic and sedative use. We are going to streamline the sedatives that the patient gets will discontinue the morphine. Will use Percocet one q.6 hourly and give only 0.5 of lorazepam at bedtime just to prevent any withdrawal. 2. Left quadriceps tender rupture, status post repair. Today is day 3 postop. Patient is doing fine from that regard. Is being follow by Dr. Rausch. There is a plan to let him go to rehab later on the week or first thing next week. 3. Morbid obesity. 4. Diabetes mellitus, stable. 5. Hypothyroidism. Patient is on Synthroid. 6. Chronic kidney disease stage 3B to 4, noted. 7. History of atrial fibrillation, currently rate controlled. 8. Dyslipidemia. 9. Severe lumbar spine degenerative disease. Patient will continue with PT. GENERAL PLAN: Today we are going to continue with the current medications including Tylenol, Eliquis, aspirin, Pristiq, Miacalcin, Zetia, Monopril, Lantus, levothyroxine, metoprolol, OxyContin, oxycodone, and pravastatin. We will continue reviewing the patient's mentation to make sure that he is getting clearer and we will also be very extremely careful with the sedatives.
[2016-09-01] MEDS: PRILOSEC PO SCH (17:06)
[2016-09-01] MEDS: NORCO-10 PO PRN (19:22)
[2016-09-02] MEDS: UROXATRAL PO SCH ×2 (00:31→22:30)
[2016-09-02] MEDS: PEN VK PO SCH ×3 (00:31→22:30)
[2016-09-02] MEDS: PERIDEX MT SCH ×3 (00:32→22:31)
[2016-09-02] MEDS: ELIQUIS PO SCH ×3 (00:32→22:30)
[2016-09-02] MEDS: PRAVACHOL PO SCH ×2 (00:32→22:30)
[2016-09-02] MEDS: HUMULIN R SUBQ SCH ×5 (00:33→22:24)
[2016-09-02] MEDS: LANTUS SUBQ SCH ×3 (00:34→22:30)
[2016-09-02] MEDS: NS 1,000 ML IV SCH ×2 (01:26→04:38)
[2016-09-02] MEDS: PRILOSEC PO SCH (06:01)
[2016-09-02] MEDS: PRISTIQ ER PO SCH (10:16)
[2016-09-02] MEDS: MONOPRIL PO SCH (10:16)
[2016-09-02] MEDS: ASPIRIN PO SCH (10:16)
[2016-09-02] MEDS: SYNTHROID PO SCH (10:16)
[2016-09-02] MEDS: ZETIA PO SCH (10:16)
[2016-09-02] MEDS: TOPROL XL PO SCH (10:16)
[2016-09-02] MEDS: LANOXIN PO SCH (10:17)
[2016-09-02] MEDS: NORCO-10 PO PRN ×2 (10:26→16:17)
--- NOTE | 2016-09-02 17:25 | PROGRESS NOTE ---
DATE: 09/02/2016 SUBJECTIVE: Today Mr. Hernandez referred to be doing okay. Still continued complaining of lower back pain. According to the family members, they still think his mentation is not 100% clear. OBJECTIVE: Vital Signs: Blood pressure is 152/98, pulse of 88, respirations 18 , temperature 98.9 degrees. The patient was saturating 96% on room air. General exam: Mr. Hernandez is a 76-year-old male. He was in bed. He did not seem to be in any major distress. HEENT: Mucosa is pink and moist. Anicteric. Acyanotic. Neck: Supple. Chest: Clear. No crepitations. No rhonchi. Cardiovascular: Regular rate and rhythm. Abdomen: Distended, but nontender. Bowel sounds were slightly reduced. No hepatosplenomegaly. GREASE MONKEY: Patient was more alert and oriented, just complained of pains and was able to follow commands. Extremities : No pedal edema. The left lower extremity was immobilized. LABORATORY DATA: Glucose is 106. ASSESSMENT: 1. Left quadriceps tendon rupture, status post repair. Today is day 4 postoperatively. 2. Altered mental status due to global encephalopathy from narcotics and sedatives. This is improving. 3. Delirium likely from #2, is improved. 4. Morbid obesity. Patient is counseled. 5. Diabetes mellitus is controlled. 6. Hypothyroidism. Patient is on Synthroid. 7. Chronic kidney disease stage III-B and IV, stable. 8. History of atrial fibrillation, currently rate controlled. 9. Severe lumbar spine degenerative disease. We will continue with physical therapy and pain medications. 10. Distended abdomen, which I think is related to ileus/constipation. We will treat this symptomatically. We will do an x-ray of the abdomen to make sure that we do not have any mechanical obstruction. GENERAL PLAN: I got a call today from Dr. Yamel Phelps, which I think is related to the patient's family about the patient's family concern that the patient is altered and that they probably want the head scan to be done. During the interview today, the was there and there was a granddaughter who had [facility] [employer], so I assume she works in the health sector. They admitted that the altered mentation is progressively clearing up, but they were concerned. I did explain to them that when you see global encephalopathy, it is less likely to be a structural disease, but rather more of a metabolic disease or medications or infection, in which we will make sure that the patient does not have any underlying UTI or infection anywhere and will be very reserved with the use of sedatives in him. They seem to understand. I also told them if the son who was more concerned and wanted any imaging studies of the brain to be done, if he is not satisfied, he can always page for me and then I will explain to them what is going on. In any case, if the mentation worsens in any way, I will not hesitate in scanning the brain. I spent a total of 45 minutes with the family and patients. [facility]
[2016-09-03] MEDS: NS 1,000 ML IV SCH ×2 (03:22→17:30)
[2016-09-03] MEDS: NORCO-10 PO PRN ×2 (03:23→08:44)
[2016-09-03] MEDS: PRILOSEC PO SCH (07:01)
[2016-09-03] MEDS: PRISTIQ ER PO SCH (08:45)
[2016-09-03] MEDS: PEN VK PO SCH ×2 (08:45→21:41)
[2016-09-03] MEDS: TOPROL XL PO SCH (08:46)
[2016-09-03] MEDS: ELIQUIS PO SCH ×2 (08:46→21:40)
[2016-09-03] MEDS: ZETIA PO SCH (08:46)
[2016-09-03] MEDS: LANOXIN PO SCH (08:46)
[2016-09-03] MEDS: MONOPRIL PO SCH (08:46)
[2016-09-03] MEDS: PERIDEX MT SCH ×2 (08:47→21:40)
[2016-09-03] MEDS: SYNTHROID PO SCH (08:47)
[2016-09-03] MEDS: ASPIRIN PO SCH (08:47)
[2016-09-03] MEDS ORDERED: CALMOSEPTINE OINTMENT TOP PRN (10:06)
[2016-09-03] MEDS: HUMULIN R SUBQ SCH ×3 (11:57→21:42)
[2016-09-03] MEDS: LANTUS SUBQ SCH ×3 (12:43→21:40)
--- NOTE | 2016-09-03 13:08 | Diag Imaging Result Document ---
PROCEDURE NAME: ABDOMEN FLAT/UPRIGHT - 09/03/2016 FLAT AND UPRIGHT RADIOGRAPH OF THE ABDOMEN 3 VIEWS: COMPARISON: 03/04/2014. FINDINGS: There are multiple gas-distended loops of bowel. Small bowel obstruction cannot be excluded. There is no definite large-volume free abdominal gas identified. IMPRESSION: Gas-distended loops of bowel worrisome for small bowel obstruction.
--- NOTE | 2016-09-03 17:47 | PROGRESS NOTE ---
DATE: 09/03/2016 Today Mr. Hernandez referred to be doing much, much better. He is more awake than other days. OBJECTIVE: Vital signs: Blood pressure is 142/52, pulse of 95, respirations 20, temperature 98.5 degrees. Patient was saturating 98% on room air. General: Mr. Hernandez is a 76-year-old male. He was in bed. Not seemingly distressed. HEENT: Mucosa is pink and moist. Anicteric. Acyanotic. Neck: Supple. Chest: Air entry is bilaterally reduced. No crepitations. Cardiovascular: Regular rate and rhythm. Abdomen: Distended, nontender. Bowel sounds reduced. No hepatosplenomegaly. MORTGAGE MANAGER: Patient is alert, is oriented. He is more conversational today. Extremities: No pedal edema. The left lower extremity continues to be immobilized in orthopedic device. LABORATORY DATA: Glucose is 160. An x-ray of the abdomen done yesterday shows gas, distended loops of bowel worrisome for small bowel obstruction. ASSESSMENT: 1. Left quadriceps tendon rupture status post repair. Today is day 5 postop. 2. Altered mental status during the hospital stay due to global encephalopathy from narcotics and sedatives. This seems to have improved. 3. Delirium likely from #2, improved. 4. Morbid obesity. 5. Diabetes mellitus. The patient is on insulin regimen. 6. Hypothyroidism. 7. Chronic kidney disease stage 3B to 4. 8. History of atrial fibrillation currently rate controlled. 9. Severe lumbar spine degenerative disease. 10. Distended abdomen likely from ileus/constipation. However an x-ray this morning is kind of worrisome for small bowel. The patient has not had any bowel movement since 3 days ago. We will therefore do a CT scan of the abdomen with oral contrast to make sure there is not any underlying small bowel obstruction. Of note, patient is not vomiting but has not had any bowel movement and I am thinking this is more off ileus. I have advised the patient to sit up and be more mobile.
--- NOTE | 2016-09-03 20:00 | Diag Imaging Result Document ---
PROCEDURE NAME: CT ABD/PELVIS ORAL CONTR ONLY - 09/03/2016 CT ABDOMEN AND PELVIS WITH ORAL CONTRAST ONLY: COMPARISON: 01/14/2013. FINDINGS: Note that due to body habitus, part of the anterior portion of the abdomen is out of the field of view. There is marked colonic distention as well as small bowel distention with air- fluid levels. The entire colon is distended as well at the mid and distal small bowel. The rectum exhibits a normal diameter where there is smooth tapering from the distended colon. I can identify no discrete obstructing mass in the distal colon or rectum given the limitations of having no IV contrast. Liquid stool is seen in the rectum. If there were an obstructing lesion, it would probably be very distal. This may represent a severe functional obstruction. There is patchy fluid seen throughout the abdomen between loops of small bowel. A small amount of ascites is seen tracking around the liver and the spleen. The gallbladder appears contracted and there are likely calcified stones in the gallbladder lumen. Fluid is also seen around the gallbladder fossa, probably simply from the ascites around the liver. There is a stable nonobstructing intrarenal stone on the right. There is no hydronephrosis. There is extensive perinephric stranding but it is similar to the previous study, likely representing perinephric fibrotic change. There is mild atelectasis at the lung bases and a calcified granuloma in the left upper lobe at the lingula. IMPRESSION: 1. Marked distention of the colon and multiple loops of small bowel. Please see the above discussion. 2. Fairly small amount of fluid tracking around the liver and spleen and layering between the loops of small bowel and colon. 3. Contracted gallbladder and suggestion of cholelithiasis. 4. Other incidental/nonacute findings detailed above. [facility]
[2016-09-03] MEDS: PRAVACHOL PO SCH (21:40)
[2016-09-03] MEDS: UROXATRAL PO SCH (21:40)
[2016-09-04] MEDS: NORCO-10 PO PRN ×3 (00:44→21:18)
[2016-09-04] MEDS: ZOFRAN IV PRN (01:41)
[2016-09-04] MEDS: HUMULIN R SUBQ SCH ×5 (05:22→20:52)
[2016-09-04] MEDS: NS 1,000 ML IV SCH ×2 (06:16→10:33)
[2016-09-04] MEDS: PRILOSEC PO SCH (06:16)
[2016-09-04] MEDS: PRISTIQ ER PO SCH (10:27)
[2016-09-04] MEDS: PEN VK PO SCH ×2 (10:27→20:51)
[2016-09-04] MEDS: ASPIRIN PO SCH (10:27)
[2016-09-04] MEDS: PERICOLACE PO SCH ×2 (10:27→20:51)
[2016-09-04] MEDS: MONOPRIL PO SCH (10:27)
[2016-09-04] MEDS: TOPROL XL PO SCH (10:28)
[2016-09-04] MEDS: ELIQUIS PO SCH ×2 (10:28→20:51)
[2016-09-04] MEDS: LANOXIN PO SCH (10:28)
[2016-09-04] MEDS: ZETIA PO SCH (10:28)
[2016-09-04] MEDS: SYNTHROID PO SCH (10:28)
[2016-09-04] MEDS: MIRALAX PO SCH ×2 (10:30→20:54)
[2016-09-04] MEDS: PERIDEX MT SCH ×2 (10:30→20:51)
[2016-09-04] MEDS: LANTUS SUBQ SCH ×2 (10:32→20:54)
[2016-09-04 15:03] LABS: CALCIUM 8.2 mg/dL (8.8-10.2); MAGNESIUM 2.8 mg/dL (1.5-2.7); POTASSIUM 3.9 mmol/L (3.5-5.1)
--- NOTE | 2016-09-04 17:19 | PROGRESS NOTE ---
DATE: 09/04/2016 SUBJECTIVE: Today Mr. Hernandez referred to be doing relatively fine, complained of some abdominal discomfort/pain. OBJECTIVE: Vital signs: Blood pressure 122/54, pulse of 83 respiration 20, temperature 98.4 degrees, patient was saturating 100% on room air. General: Mr. Hernandez 76- year-old male. He was in bed, did not seem to be in any cardiorespiratory distress. HEENT: Mucosa is pink and moist. Anicteric. Acyanotic. Neck: Supple. Chest: Air entry is bilaterally reduced. Cardiovascular: Regular rate and rhythm. Abdomen: Severely distended but nontender. Bowel sounds are reduced. No hepatosplenomegaly. DIRECTOR AIRPORT: Patient is alert and oriented x4. There is no focal neurological deficit. The left lower extremity continues to be immobilized in an orthopedic device. LABORATORY DATA: No new lab work. Glucose is 168. A CT scan of the abdomen done yesterday shows marked distention of the colon and multiple loops of small bowel, contracted gallbladder and suggestion of cholelithiasis. ASSESSMENT: 1. Left quadriceps tendon rupture status post repair. Today is day 6 postop. Patient seems to be doing okay from orthopedic standpoint. 2. Altered mental status during the hospital stay due to global encephalopathy from narcotics and sedatives. This has also improved. 3. Delirium likely from #2 is improved. 4. Severe abdominal distention. Questionable mechanical obstruction versus severe ileus/constipation. My understanding is patient has been having some diarrhea. This can just be an overflow incontinence. We did a CT scan of the abdomen which they were unable to see the distal part of the GI tract so very distal mechanical obstruction could not be ruled out. We are going to consult general surgery to evaluate the patient to make sure we do not miss any mechanical obstruction. Will also consult GI to evaluate the patient and make sure if there is no mechanical obstruction patient continues with distention of the abdomen then they can decompress the colon to prevent any rupture. 5. Severe lumbar spine degenerative disease noted. 6. History of atrial fibrillation currently rate controlled. 7. Chronic kidney disease stage 3B to 4 stable. Today we are going to do a BMP just to look on the potassium and all the electrolytes to make sure that they are not contributing to the patient's abdominal distention. [facility]
[2016-09-04] MEDS: PRAVACHOL PO SCH (20:51)
[2016-09-04] MEDS: UROXATRAL PO SCH (20:51)
[2016-09-05] MEDS: NORCO-10 PO PRN ×3 (03:26→21:10)
[2016-09-05 05:46] LABS: MANUAL DIFF NEEDED? NO
[2016-09-05 05:58] LABS: BASO% 0.1 % (0.0-0.8); EOS# 0.41 X1000 (0.0-0.7); EOS% 4.7 % (0.0-10.0); HEMATOCRIT 37.3 % (42.0-52.0); HEMOGLOBIN 11.6 g/dL (14.0-18.0); IMM GRAN# 0.05 X1000 (0.0-0.04); IMM GRAN% 0.6 % (0.0-0.5); LYMPH# 0.65 X1000 (1.2-3.4); LYMPH% 7.5 % (20.5-51.1); MCH 28.4 PG (27-31); MCHC 31.1 g/dL (33-37); MCV 91.4 FL (81-99); MONO# 0.77 X1000 (0.11-0.59); MONO% 8.8 % (1.7-9.3); MPV 11.8 FL (7.4-10.4); NEUT% 78.3 % (42.2-75.2); PLT 271 X1000 (130-400); RBC 4.08 XMIL (4.7-6.1)
[2016-09-05] MEDS: HUMULIN R SUBQ SCH ×4 (06:43→21:09)
[2016-09-05 07:07] LABS: CALCIUM 8.4 mg/dL (8.8-10.2); POTASSIUM 3.5 mmol/L (3.5-5.1)
[2016-09-05] MEDS: NS 1,000 ML IV SCH ×3 (07:35→11:16)
--- NOTE | 2016-09-05 07:35 | CONSULTATION ---
DATE OF CONSULTATION: 09/04/2016 HISTORY OF PRESENT ILLNESS: This is a 76-year-old male who underwent a left quadriceps tendon repair by Dr. Rausch several days ago. Over the course of his hospitalization, he has developed increased abdominal distention and diarrhea. A CT scan today showed a largely dilated colon throughout with smooth tapering down to the level of the rectum. Speaking with the family and the patient, he denies any abdominal pain. He is having liquid stools. But, he is very distended. He had a colonoscopy approximately a year ago with Dr. Flores that had some polyps that were removed, but no evidence of malignancy or stricture per the family. REVIEW OF SYSTEMS: Ten point negative other than what is mentioned in his HPI. PAST MEDICAL HISTORY: 1. Coronary disease. 2. Diabetes. 3. Hypothyroidism. 4. Morbid obesity. 5. Obstructive sleep apnea. 6. Hyperlipidemia. 7. Chronic pain. 8. Atrial fibrillation. 9. Hand fracture. PAST SURGICAL HISTORY: 1. He has had coronary bypass grafting x3. 2. Bilateral knee arthroplasties. 3. Back surgery. 4. Hand surgery. SOCIAL HISTORY: He is . He has got 2 daughters that are with him today. Denies any tobacco, alcohol or drugs. FAMILY HISTORY: Negative for cancer. PHYSICAL EXAMINATION: Vital signs: He is afebrile. Heart rate is 90, in the low 100s. Blood pressure 122/54, oxygen saturation 100% on room air. General: He is alert, he is in no acute distress. Cardiovascular: Normal rate, regular rhythm. Pulmonary: No increased work of breathing. Abdomen: Soft. He is very distended and tympanic. There is no evidence of hernias. There is no peritonitis, thickness. Otherwise warm and dry. Extremities: His left lower extremity is in a knee immobilizer. LABS: White count 6, hematocrit 34, platelets of 158. Sodium 134, potassium 3.9, chloride 101, bicarb is 20, BUN is 76, creatinine is 2.3, glucose 182, magnesium 2.8, phosphorus 3.6. CT of the abdomen and pelvis shows marked distention of the colon and multiple loops of small bowel. There is some simple appearing fluid around the liver and the spleen and a contracted gallbladder. ASSESSMENT AND PLAN: This is a 76-year-old male with what appears to be a pseudo-obstruction of the colon, consistent with [place] syndrome. His exam is benign, although quite distended. On rectal exam, I feel no distal obstruction, no masses, but a dilated rectum. I placed a Serrano catheter with a large fay of air and liquid stool. PLAN: 1. Will continue rectal tube decompression. 2. GI medicine with Dr. Engel following for plans for endoscopic decompression i is indicated. I have ordered a Gastrografin enema to rule out distal obstruction of the patient. 3. His electrolytes were okay, but will need to continue to optimize these as well as diabetes per the medicine service. 4. Otherwise increase mobility and ambulation as much as possible as allowed by the Orthopedic service. 5. We will limit opiate narcotics as well. 6. Continue serial exams and monitor him closely, but do not plan for any surgical intervention at this time. [facility]
[2016-09-05] MEDS: ELIQUIS PO SCH ×2 (08:25→21:07)
[2016-09-05] MEDS: ASPIRIN PO SCH (08:25)
[2016-09-05] MEDS: PRISTIQ ER PO SCH (08:25)
[2016-09-05] MEDS: LANOXIN PO SCH (08:25)
[2016-09-05] MEDS: PEN VK PO SCH ×2 (08:26→21:08)
[2016-09-05] MEDS: MONOPRIL PO SCH (08:26)
[2016-09-05] MEDS: TOPROL XL PO SCH (08:26)
[2016-09-05] MEDS: PERICOLACE PO SCH ×2 (08:26→21:07)
[2016-09-05] MEDS: ZETIA PO SCH (08:26)
[2016-09-05] MEDS: SYNTHROID PO SCH (08:26)
[2016-09-05] MEDS: MIRALAX PO SCH ×2 (08:27→21:08)
[2016-09-05] MEDS: LANTUS SUBQ SCH ×2 (08:27→21:13)
[2016-09-05] MEDS: PERIDEX MT SCH ×2 (08:28→21:07)
[2016-09-05] MEDS: PRILOSEC PO SCH (08:28)
--- NOTE | 2016-09-05 08:28 | Diag Imaging Result Document ---
PROCEDURE NAME: CHEST-PORTABLE - 09/04/2016 PLAIN RADIOGRAPH OF THE LOWER CHEST AND UPPER ABDOMEN: COMPARISON: 08/27/2016. FINDINGS: There is a newly placed NG tube. The tip projects below the diaphragm and is assumed to be in the lumen of the stomach in the expected position. Very limited images of the lung bases appear to be stable. IMPRESSION: Interval placement of NG tube as described in the expected position.
--- NOTE | 2016-09-05 08:32 | CONSULTATION ---
DATE OF CONSULTATION: 09/04/2016 REASON FOR CONSULTATION: Abdominal distention. PRIMARY SCIENTIFIC DIRECTOR: Dr. Flores. HISTORY OF PRESENT ILLNESS: Mr. Hernandez is a 76-year-old male who was admitted on 08/27/2016 after a fall and injured his left knee. He underwent left quadriceps tendon repair by Dr. Rausch on 08/29/2016. Following that, he was put on pain medication/narcotics. According to the records, he had minimal bowel movements since the surgery and he was noted to have gradually developing abdominal distention. He had a CT scan done yesterday which showed marked distention of the colon and multiple loops of small bowel, fairly small amount of fluid tracking around the liver and spleen and layering between the loops of the small bowel and colon, contracted gallbladder and suggestion of cholelithiasis, the entire colon is distended as was the mid and distal small bowel. The rectum exhibits a normal diameter where there is smooth tapering from the distended colon. No discrete obstructing mass in the distal colon or rectum was identified. Given the limitations of having no IV contrast, liquid stool was noted in the rectum. Stable nonobstructing intrarenal stone noted on the right. No hydronephrosis. Granuloma calcified of the left upper lobe at lingula and mild atelectasis at the lung bases noted. Gastroenterology was consulted for further management. PAST MEDICAL HISTORY: Coronary disease, type 2 diabetes, morbid obesity, hypothyroidism, obstructive sleep apnea, hyperlipidemia, chronic back pain, recurrent cellulitis , atrial fibrillation, sleep apnea, bilateral cellulitis. PAST SURGICAL HISTORY: CABG x3, bilateral total knee arthroplasties, triple bypass, back surgery 20 years ago, sleep apnea, now recent left quadriceps tendon repair. FAMILY HISTORY: Noncontributory. SOCIAL HISTORY: He is . He has very attentive 2 daughters at bedside. ALLERGIES: To vancomycin and Cymbalta. MEDICATIONS IN THE HOSPITAL: Were reviewed. REVIEW OF SYSTEMS: Denies any fevers, rigors, or chills, chest pain, shortness of breath. He does have decreased p.o. intake and nausea, and decreased p.o. intake since the surgery. He denies any vomiting blood or passing blood in the stools. He does have chronic arthritis. He denies any neurological complaints. PHYSICAL EXAMINATION: Vital Signs: Temperature of 98.4 degrees, pulse rate of 90, respiratory rate 20, blood pressure 122/54, saturating 100% on room air. Body weight of 336 pounds, BMI of 43.1 kg/m2. General Appearance: He is obese, lying in bed, in no acute distress. HEENT: Mild pallor. No icterus. Pupils equal, reactive to light. Neck: Supple. Chest: Decreased at the bases. Cardiovascular: Regular rhythm. No murmur. Abdomen: Marked distention of the abdomen noted. Tympanic on percussion. Bowel sounds are hypoactive. No rebound. No guarding. Extremities: No cyanosis, clubbing. Mild lower extremity edema noted. He has a brace on the left knee. Neurologic: He is alert, awake, oriented x3. LABS: Hemoglobin and hematocrit are 10.5 and 34.2 on 08/31/2016. Sodium 135, potassium 3.9, chloride 101, bicarb 29, anion gap 13, BUN of 76, creatinine 2.3, glucose of 180 , calcium is 8.2, magnesium 2.8, phosphorus 3.6. Liver enzymes were normal on 08/28/2016. CT scan as described in the HPI. IMPRESSION AND PLAN: Colonic pseudoobstruction likely in the setting of recent left knee surgery for repair of quadriceps tendon. In this regard we will make the following recommendations. Last colon was done [address] Flores. RECOMMENDATIONS: 1. The patient will have serial abdominal x-rays every day. 2. Patient will have serial abdominal exams per the RN. 3. Patient will need to reduce the usage of narcotics as low as possible and improve activity and maybe able to ambulate after clearance with the orthopedics doctor. We will put an NG tube and rectal tube to help decompress the colon, small bowel. Patient will be put on a liquid diet for now. 4. The patient will get a KUB in the morning. 5. The patient may need a flexible colonoscopy or decompression colonoscopy if the conservative management fails. 6. I discussed the above plan of care with the patient and family at bedside, and all questions were answered. I also discussed the plan of care with Dr. Núñez. [facility]
--- NOTE | 2016-09-05 13:37 | Diag Imaging Result Document ---
PROCEDURE NAME: BARIUM ENEMA - 09/05/2016 CONTRAST ENEMA: COMPARISON: CT abdomen and pelvis 09/03/2016. FINDINGS: Total fluoroscopy time was 7 minutes 15 seconds. Seventy-one images were obtained. The preexisting rectal catheter was used. Water-soluble contrast flowed into the colon by gravity. The colon was greatly dilated, and there was fecal impaction of the ascending and transverse colon. These are all stable in appearance from the prior CT. There is no evidence of stricture or mass. There is significant dilation of the small bowel diffusely as well, again stable from the prior CT. No evidence of contrast leak. IMPRESSION: 1. Severe dilation of the small bowel and colon of uncertain origin. 2. Severe fecal impaction of the ascending and transverse colon, likely improved by the contrast enema.
[2016-09-05] MEDS ORDERED: INSULIN PEN NEEDLES ONE (15:12)
[2016-09-05] MEDS ORDERED: NORCO-10 PO ONE (15:15)
--- NOTE | 2016-09-05 15:59 | PROGRESS NOTE ---
DATE: 09/05/2016 SUBJECTIVE: Today Mr. Hernandez referred to be doing okay. NG tube was placed in last night and he has been draining a lot. OBJECTIVE: Vital signs: Blood pressure is 140/51, pulse of 111, respiration is 16, temperature 98.2 degrees. General: Mr. Hernandez is a 76-year-old male. He was in bed. He did not seem to be in any distress. HEENT: Mucosa is pink and moist. Anicteric. Acyanotic. Neck: Supple. Chest: Clear. Cardiovascular: Regular rate and rhythm. Abdomen: Distended. It is nontender. Bowel sounds are reduced. No hepatosplenomegaly. LINUX SYSTEMS ANALYST: Patient is alert and oriented x4. There is no focal neurological deficit. Extremities: The left lower extremity is immobilized in an orthopedic device. LABORATORY DATA: WBC is 8.71, hemoglobin is 11.6, platelet count of 271,000. Chemistry: Sodium is 144, potassium is 3.5, chloride is 109, bicarb is 19, BUN is 75, creatinine is 1.9, this is improved from 2.3 yesterday. ASSESSMENT: Mr. Hernandez is a 76-year-old male who presented to the hospital on 08/27/2016 after he had falling at home. On presentation he was found to have rupture of the quadriceps tendon in the left knee. The patient was evaluated by surgery, this was completely done. However, postoperatively he had altered mentation due to narcotic use and sedatives. That has improved. Just about 3 days ago he started developing some abdominal distention which is a new problem now. 1. Left quadriceps tendon rupture, status post repair. Today is day 7 postop. He is seems to be doing okay from an orthopedic standpoint. 2. Altered mental status during the hospital stay due to global encephalopathy from narcotic and sedatives. This has improved. 3. Severe abdominal distention. A CT scan shows remarkable distention. However , they were not able to rule out a distal obstruction. The patient had a barium enema today. We are still pending the report on that. He has an NG tube which continues to drain. It drained about 2665 from the upper GI tract yesterday and is also getting a rectal tube. 4. Severe lumbar spine degenerative disease noted. 5. History of atrial fibrillation, currently rate controlled. 6. Acute on chronic kidney disease. The patient's creatinine continues to show some progressive improvement. 7. Morbid obesity. 8. Stasis dermatitis on lower extremities noted. PLAN: Patient is doing remarkably fine. 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 However, the abdominal distention is new. barium enema result is still pending. Surgery has evaluated the patient and GI has also evaluated the patient. At this point, I think the general consensus is that the abdominal distention is due pseudo obstruction post surgery, from immobilization and also from medications side effects. We will get the patient more mobile. I will continue with NG tube and rectal tube decompression and follow up with daily x-rays until this has resolved and then we can discharge the patient to rehab. We appreciate the input of all the subspecialties in the care of Mr. Hernandez. [facility]
[2016-09-05] MEDS: PRAVACHOL PO SCH (21:07)
[2016-09-05] MEDS: UROXATRAL PO SCH (21:08)
--- NOTE | 2016-09-05 23:33 | PROGRESS NOTE ---
DATE: 09/05/2016 SUBJECTIVE: No events overnight. He is more alert this morning. OBJECTIVE: Vital signs reviewed PHYSICAL EXAM: Soft but significantly distended, tympanic with no peritonitis. LABS: reviewed ASSESSMENT AND PLAN: A 76-year-old male with colonic pseudoobstruction and possibly some constipation status post rectal tube placement. He is somewhat less distended this morning. No real abdominal pain. No nausea, vomiting. He has got NG tube in place. PLAN: Will get a Gastrografin enema today to rule out distal obstruction. Dr. Engel is following and I suspect this gentleman will likely need endoscopic decompression. Will continue monitor for now. No plans for surgical intervention. [facility]
[2016-09-06] MEDS: NS 1,000 ML IV SCH ×3 (03:12→18:00)
[2016-09-06] MEDS: NORCO-10 PO PRN ×3 (03:12→22:33)
[2016-09-06 06:32] LABS: MANUAL DIFF NEEDED? NO
[2016-09-06] MEDS: HUMULIN R SUBQ SCH ×4 (06:48→20:49)
[2016-09-06 07:10] LABS: BASO% 0.2 % (0.0-0.8); EOS# 0.48 X1000 (0.0-0.7); EOS% 4.5 % (0.0-10.0); HEMATOCRIT 36.6 % (42.0-52.0); HEMOGLOBIN 11.3 g/dL (14.0-18.0); IMM GRAN# 0.07 X1000 (0.0-0.04); IMM GRAN% 0.7 % (0.0-0.5); LYMPH# 0.87 X1000 (1.2-3.4); LYMPH% 8.2 % (20.5-51.1); MCH 28.4 PG (27-31); MCHC 30.9 g/dL (33-37); MONO% 9.5 % (1.7-9.3); MPV 11.9 FL (7.4-10.4); NEUT% 76.9 % (42.2-75.2); PLT 236 X1000 (130-400); RBC 3.98 XMIL (4.7-6.1)
[2016-09-06 07:14] LABS: POTASSIUM 4.3 mmol/L (3.5-5.1)
[2016-09-06] MEDS: TYLENOL PO PRN (07:28)
[2016-09-06] MEDS: PRILOSEC PO SCH (07:28)
[2016-09-06] MEDS: MONOPRIL PO SCH (08:06)
[2016-09-06] MEDS: PERIDEX MT SCH ×2 (08:07→20:49)
[2016-09-06] MEDS: SYNTHROID PO SCH (08:07)
[2016-09-06] MEDS: TOPROL XL PO SCH (08:07)
[2016-09-06] MEDS: ASPIRIN PO SCH (08:07)
[2016-09-06] MEDS: PEN VK PO SCH ×2 (08:07→20:48)
[2016-09-06] MEDS: LANOXIN PO SCH (08:07)
[2016-09-06] MEDS: ELIQUIS PO SCH ×2 (08:07→20:49)
[2016-09-06] MEDS: ZETIA PO SCH (08:07)
[2016-09-06] MEDS: PRISTIQ ER PO SCH (08:07)
[2016-09-06] MEDS: MIRALAX PO SCH ×2 (08:08→20:49)
[2016-09-06] MEDS: PERICOLACE PO SCH ×2 (08:08→20:49)
--- NOTE | 2016-09-06 11:28 | Diag Imaging Result Document ---
PROCEDURE NAME: ABDOMEN FLAT/UPRIGHT - 09/06/2016 FLAT AND UPRIGHT ABDOMEN: FINDINGS: There is an NG tube with its tip in the upper abdomen, presumably in the stomach. There is considerable gas throughout the colon. There is some stool in the rectum. There are small bowel loops, which are slightly distended with gas, in the right lower quadrant. The appearance of the abdomen has not changed appreciably since 09/03/2016. IMPRESSION: Ileus.
[2016-09-06] MEDS: LANTUS SUBQ SCH ×2 (11:46→20:49)
--- NOTE | 2016-09-06 13:47 | PROGRESS NOTE ---
DATE: 09/06/2016 SUBJECTIVE: Fam Hernandez is a 76-year-old male who is 1 week out from a left quadriceps tendon repair. He has had difficult recovery from the surgery. He currently has an NG tube and is having apparently an ileus. OBJECTIVE: He is alert and oriented and cooperative with exam. His knee wound is clean, dry, and intact without sign of infection. His leg is neurovascularly intact. ASSESSMENT: Stable from an orthopedic standpoint. PLAN: He can be discharged to rehab at any time. He should be weightbearing as tolerated on the left lower extremity with no being of the knee, in the knee immobilizer. He will need to see me back in the office next week for staple removal. If he is still in the hospital, I will remove them here prior to his discharge.
--- NOTE | 2016-09-06 16:47 | PROGRESS NOTE ---
DATE: 09/06/2016 SUBJECTIVE: Mr. Hernandez has had a rough time. He had his left quadriceps tear repaired. Since that time he has had an ileus and has a rectal tube in place at present time. OBJECTIVE: Vital signs: Temperature 98.5 degrees, pulse 99, respirations 18, blood pressure 187/64. Lungs: Are clear in all lung aranda. Cardiovascular: Regular rhythm and rate without murmur or S3. Abdomen: Soft. Skin: Warm and dry. : Good urine output, 3600. LAB: White count 10,580, hematocrit 36, platelet count 236,000. Sodium 144,potassium 4.3, chloride 111, BUN 64, creatinine 1.7. Blood sugar 135, 114, 105. ASSESSMENT AND PLAN: 1. Stable from orthopedic standpoint. Had left quadriceps tendon repair and difficulty recovering from surgery. He has an NG-tube, and ileus. 2. Ileus postoperative, severe abdominal distention. CT scan showed remarkable distention. However, not able to rule out distal obstruction. Patient had a barium enema, and thinking about doing a colonoscopy to help. NG tube continues to drain. May have pseudo-obstruction. 3. Severe lumbars spine degenerative disease. 4. History of atrial fibrillation, currently rate controlled. 5. Altered mental status. 6. Some global encephalopathy from narcotics. 7. Acute on chronic kidney disease. 8. Morbid obesity. 9. Stasis dermatitis lower extremities. Appears to be stable. Working to get him to rehab. We need to get his GI, his colon working again. May consider rectal, to continue with NG tube and rectal tube decompression. May consider colonoscopy, and I will guess he is a candidate for neostigmine. We looked at his present orders, I do not see any change at this time.
--- NOTE | 2016-09-06 17:21 | PROGRESS NOTE ---
DATE: 09/06/2016 SUBJECTIVE: No major events. Having some flatus, and stool in his BMS. No abdominal pain. OBJECTIVE: Vital Signs: He is afebrile. Heart rates intermittently in low 100s. Abdomen: Less distended, I would say, today. Soft. Tympanic. LABS: I reviewed his labs. White count is 10, potassium is 4.3, creatinine is 1.7. ASSESSMENT: A 76-year-old male with an elderly syndrome type picture. His barium enema failed to show any distal obstruction. He has a rectal tube and NG tube. N.p.o. Electrolytes look okay. PLAN: No plan for surgical intervention. I suspect he is going to require endoscopic decompression. We will continue to follow along. Dr. Engel is following. [facility]
[2016-09-06] MEDS: UROXATRAL PO SCH (20:48)
[2016-09-06] MEDS: PRAVACHOL PO SCH (20:48)
[2016-09-07] MEDS: NORCO-10 PO PRN ×3 (04:15→22:15)
[2016-09-07] MEDS: ZOFRAN IV PRN (04:57)
[2016-09-07] MEDS: NS 1,000 ML IV SCH (04:58)
[2016-09-07] MEDS: HUMULIN R SUBQ SCH ×4 (06:10→21:29)
[2016-09-07] MEDS: PRILOSEC PO SCH (06:11)
--- NOTE | 2016-09-07 09:08 | PROGRESS NOTE ---
DATE: 09/07/2016 SUBJECTIVE: No events overnight. He is sleeping this morning. OBJECTIVE: Vital signs: He is afebrile. No tachycardia. Blood pressures are 170s, 180s. Abdomen: He is quite distended and tympanic still. He has got an NG tube and a BMS in place. LABS: Reviewed and pending this morning, but white count was normal yesterday. ASSESSMENT AND PLAN: A 76-year-old male with colonic pseudoobstruction. Electrolytes were okay yesterday, and he is being decompressed from above and below. His exam is benign. I think is going to progress in the endoscopic decompression, or possibly neostigmine if the medicine services feel he is an appropriate candidate. No plans for surgical intervention at this time.
[2016-09-07] MEDS ORDERED: FLEET ENEMA PR ONE (14:00)
[2016-09-07] MEDS ORDERED: MYLICON DROPS (DOSE) MISC ONE (15:11)
[2016-09-07] MEDS ORDERED: DIPRIVAN 1% ONE (16:02)
[2016-09-07] MEDS ORDERED: LIDOCAINE SYRINGE ONE (16:33)
[2016-09-07] MEDS ORDERED: ANESTHESIA PB SET 88 IN 5742 ONE (16:34)
[2016-09-07] MEDS ORDERED: NS 1,000 ML ONE (16:34)
--- NOTE | 2016-09-07 18:39 | OPERATIVE NOTE ---
PROCEDURE DATE: 09/07/2016 PROCEDURE: Decompression colonoscopy. PREOPERATIVE DIAGNOSIS: Dilated colon/colon ileus. POSTOPERATIVE DIAGNOSIS: Colitis ascending colon, and diffusely dilated colon decompressed. HISTORY: This is a 76-year-old gentleman, who has had orthopedic surgery and has been in the hospital because of colon distention. The colonoscopy was done for decompression purposes. DESCRIPTION OF PROCEDURE: Informed consent was obtained from the patient as well as family members. The procedure, risks, benefits, alternatives were explained in layman's terms. He understood. All his pertinent questions were answered. The patient was brought to the endoscopy unit and was premedicated as per Anesthesia. After adequate sedation, while he was lying in the left lateral position, digital rectal exam was performed, which was essentially negative except for some brown stool on the finger stalk. The scope was gently introduced into the rectum but immediately I met a good bit of stool in the colon. However I was able to advance the scope with vigorous irrigation and suctioning. The visualization of the colon was possible again with vigorous irrigation and suctioning. I was able to advance it all the way up to what appeared to be cecum. Throughout the colon the colon was dilated and distended. I kept on suctioning the colon and advanced up to the cecum. Where there I vigorously washed the colon wall to see multiple ulcers in the colon. Could be ischemic or pressure induced ulcer or ulcer from infection. The scope was then withdrawn again suctioning as much of the air as I could. The suctioning was not completely effective because of the chunk of stool getting stuck on the suction channel. However I decompressed as much as possible. I withdrew the scope without any complication. Patient tolerated the procedure with no complications noted. Patient was then transferred to the recovery area. IMPRESSION: Colitis right side of the colon possible pressure necrosis or infectious colitis. Otherwise dilated colon decompressed. RECOMMENDATION: I would continue current treatment. Encouraged the patient in changing the position in the bed from the right to the left side as well as supine position, and aggressive management of electrolyte to keep it with the normal range. Continue with medical management. Further plans made according to his progress. Case was discussed with the patient's family member. I have explained to them the findings. They understood and all the pertinent questions answered.
[2016-09-07] MEDS: ASPIRIN PO SCH (20:00)
[2016-09-07] MEDS: ELIQUIS PO SCH ×2 (20:01→23:28)
[2016-09-07] MEDS: LANTUS SUBQ SCH ×2 (20:02→23:29)
[2016-09-07] MEDS: LANOXIN PO SCH (20:02)
[2016-09-07] MEDS: MONOPRIL PO SCH (20:03)
[2016-09-07] MEDS: PRISTIQ ER PO SCH (20:03)
[2016-09-07] MEDS: ZETIA PO SCH (20:03)
[2016-09-07] MEDS: PEN VK PO SCH ×2 (20:03→23:29)
[2016-09-07] MEDS: MIRALAX PO SCH ×2 (20:03→23:29)
[2016-09-07] MEDS: PERICOLACE PO SCH ×2 (20:04→23:29)
[2016-09-07] MEDS: TOPROL XL PO SCH (20:04)
[2016-09-07] MEDS: SYNTHROID PO SCH (20:04)
[2016-09-07] MEDS: PERIDEX MT SCH ×2 (20:04→21:29)
[2016-09-07] MEDS: UROXATRAL PO SCH (23:29)
[2016-09-07] MEDS: PRAVACHOL PO SCH (23:29)
[2016-09-08] MEDS: HUMULIN R SUBQ SCH ×4 (06:05→22:30)
--- NOTE | 2016-09-08 06:57 | EKG Report ---
Test Performed on : 09/07/2016 11:47:31 PM Test Reason : tele Blood Pressure : / mmHG Vent. Rate : 091 BPM Atrial Rate : 086 BPM P-R Int : 000 ms QRS Dur : 102 ms QT Int : 418 ms P-R-T Axes : 000 050 238 degrees QTc Int : [address] & T wave abnormality, consider inferior ischemia Prolonged QT Abnormal ECG When compared with ECG of 01-SEP-2016 01:13, Atrial fibrillation. has replaced Sinus rhythm. Nonspecific T wave abnormality has replaced inverted T waves in Inferior leads T wave inversion no longer evident in Anterior leads QT has lengthened Confirmed by Norberto MENDEZ, Linda Sierra ([id number]) on 09/08/2016 10:14:54 AM
--- NOTE | 2016-09-08 10:50 | Diag Imaging Result Document ---
PROCEDURE NAME: KUB ABDOMEN - 09/08/2016 PORTABLE SUPINE ABDOMEN, TWO VIEWS: COMPARISON: 09/06/2016. FINDINGS: A nasogastric tube overlies the stomach. There are distended small bowel loops in the lower abdomen. These are fairly similar to the prior study. Contrast is present in the colon. IMPRESSION: Persistent dilated small bowel loops although there is contrast within the colon and the colon is decompressed. [facility]
[2016-09-08] MEDS: PRISTIQ ER PO SCH (10:53)
[2016-09-08] MEDS: ASPIRIN PO SCH (10:53)
[2016-09-08] MEDS: PEN VK PO SCH ×2 (10:53→22:24)
[2016-09-08] MEDS: SYNTHROID PO SCH (10:53)
[2016-09-08] MEDS: PRILOSEC PO SCH (10:54)
[2016-09-08] MEDS: MONOPRIL PO SCH (10:54)
[2016-09-08] MEDS: ZETIA PO SCH (10:55)
[2016-09-08] MEDS: ELIQUIS PO SCH ×2 (10:55→22:24)
[2016-09-08] MEDS: LANOXIN PO SCH (10:55)
[2016-09-08] MEDS: TOPROL XL PO SCH (10:55)
[2016-09-08] MEDS: PERIDEX MT SCH ×2 (10:55→22:48)
--- NOTE | 2016-09-08 10:57 | PROGRESS NOTE ---
DATE: 09/08/2016 SUBJECTIVE: Underwent endoscopic decompression yesterday. There was no evidence of obstruction or impacted stool. Less distended today. Continues to have bowel movements and flatus. Dr. Flores was concerned about some ulcers in the right colon. OBJECTIVE: Vital Signs: He is afebrile. Heart rate is in the 90s to low 100s. Blood pressure 129/48. Oxygen saturation 99% on room air. General: He is alert. Abdomen: His abdomen is much less distended and softer. He is still a little tympanic. NG tube is in place with minimal output. Labs: Reviewed. Blood sugar is 174 but otherwise nothing new today. ASSESSMENT AND PLAN: A 76-year-old male with pseudoobstruction of the colon, now status post endoscopic decompression. His examination is improved. Clinically, no signs of perforation. We will continue to follow and manage nonoperatively for now with optimization of all his medical problems. He may need further endoscopic decompression in the future.
[2016-09-08] MEDS: NORCO-10 PO PRN (11:05)
[2016-09-08] MEDS: PERICOLACE PO SCH ×2 (11:11→22:47)
[2016-09-08] MEDS: LANTUS SUBQ SCH ×2 (11:11→21:22)
[2016-09-08] MEDS: MIRALAX PO SCH ×2 (11:12→22:27)
--- NOTE | 2016-09-08 12:42 | PROGRESS NOTE ---
DATE: 09/08/2016 SUBJECTIVE: Fam Hernandez is a 76-year-old male who is 10 days out from a left quadriceps tendon repair. He has developed an ileus and is on G-tube. He is mostly sleeping; however, he is arousable and answers appropriately. OBJECTIVE: His knee wound is clean, dry, and intact without sign of infection. His leg is neurovascularly intact. ASSESSMENT: Status post left quadriceps tendon repair. PLAN: We will remove his michael today. He can be discharged to rehab when he is stable medically.
--- NOTE | 2016-09-08 13:14 | PROGRESS NOTE ---
DATE: 09/08/2016 HISTORY: Mr. Hernandez is awake. NG tube in place. His abdomen feels soft. He feels better. He has no complaints. Daughter was at the bedside. PHYSICAL EXAMINATION: Temperature 98 degrees, pulse 104, respirations 18, and blood pressure 129/42.Lungs: Clear in all lung aranda. Cardiovascular: Regular rhythm and rate without murmur or S3. Abdomen: Distended and less tight. No pain or tenderness reported. LABORATORY: Urine output 1650. Blood sugar 167, 169, and 161. Labs reviewed: CBC from the hematocrit stable at 36. Blood sugars 201, 167 and 174. ASSESSMENT AND PLAN: 1. A 76-year-old male with pseudo-obstruction of the colon, status post endoscopic decompression yesterday. It looks better, a little softer. No sign of perforation. Continue to follow conservative management. He has an NG tube in place. 2. Status post left quadriceps tendon repair doing well. 3. Morbid obesity and general deconditioning and weakness. We need to incorporate prolonged physical therapy. 4. Severe lumbar spine degenerative disease. 5. History of atrial fib, rate controlled. 6. History of altered mental status which has resolved and suspect some underlying dementia although family reports that he was still actively working and his mind is very sharp so we are not at all sure about this. 7. He presented with mental status change and global encephalopathy. I suspect his metabolic and probably from his pain medicines as well as a little dehydration. 8. History of chronic kidney disease. Reviewed present orders. I do not see any changes to make at this point. He is on Uroxatral 10 mg at bedtime, Zetia 10 mg a day. He is getting IV fluids at 75 mL an hour. MiraLAX 17 g twice a day. Docusate 1 b.i.d. Eliquis 5 mg b.i.d. Monopril 40 mg daily taking his insulin sliding scale. Hydrocodone for pain.
[2016-09-08] MEDS ORDERED: INSULIN PEN NEEDLES ONE (16:07)
[2016-09-08] MEDS: NS 1,000 ML IV SCH ×2 (18:50→20:00)
[2016-09-08 19:48] LABS: MANUAL DIFF NEEDED? NO
[2016-09-08 20:02] LABS: BASO% 0.1 % (0.0-0.8); EOS% 3.4 % (0.0-10.0); HEMATOCRIT 34.5 % (42.0-52.0); HEMOGLOBIN 10.3 g/dL (14.0-18.0); IMM GRAN# 0.04 X1000 (0.0-0.04); IMM GRAN% 0.5 % (0.0-0.5); LYMPH# 0.52 X1000 (1.2-3.4); MCH 27.8 PG (27-31); MCHC 29.9 g/dL (33-37); MONO# 0.67 X1000 (0.11-0.59); MONO% 7.7 % (1.7-9.3); NEUT% 82.3 % (42.2-75.2); PLT 224 X1000 (130-400); RBC 3.71 XMIL (4.7-6.1)
[2016-09-08 20:30] LABS: CALCIUM 8.3 mg/dL (8.8-10.2); MAGNESIUM 2.3 mg/dL (1.5-2.7)
--- NOTE | 2016-09-08 20:48 | CONSULTATION ---
DATE OF CONSULTATION: 09/08/2016 HISTORY OF PRESENT ILLNESS: Patient is admitted with dilated colonic ileus, has NG tube and has undergone dilated colon decompression. Cardiology consulted for 38 beat runs of broad complex tachycardia. The patient does not complain of chest pain at the time of my examination, however he is disoriented as well. He has significant cardiac history as listed below. His magnesium lab work have been ordered and are currently pending. The patient presented to the emergency room on 08/27/2016 as he could not get up. He was brought to the emergency room by his family. His left knee was sore and he was admitted with general weakness, deconditioning. He also has morbid obesity, coronary artery bypass grafting, diabetes and significant sleep apnea. His abdominal and pelvis CT was done on 2015 which revealed mild dilatation, distention of the colon with multiple bowel loops of small bowel with fluid around the liver, spleen, contracted gallbladder. GI was consulted and on 09/07 he underwent decompression colonoscopy. He went into broad complex tachycardia, 38 beat run and was transferred to ICU. At time of my examination patient is in sinus rhythm. He has frequent PACs. Review of systems could not be obtained from the patient as he is somnolent and slightly disoriented. History was obtained from the medical records and from his chart. PAST MEDICAL HISTORY: 1. Atrial flutter paroxysmal with atrial fibrillation. Cardioversion in the past. 2. Coronary artery disease status post coronary artery bypass grafting in 2007 with SPENCER to left anterior descending artery, jump graft to circumflex and right coronary artery. 3. Hypertension. 4. Hyperlipidemia. 5. Diabetes. 6. Chronic renal insufficiency. 7. Hypothyroid. 8. Sleep apnea. 9. Chronic pain syndrome. 10. History of prostate cancer. 11. Total knee arthroplasties. 12. Back surgery. 13. Chronic pain syndrome. 14. Recurrent cellulitis of lower extremities. He is on penicillin. CURRENT MEDICATIONS: 1. Zetia 10. 2. Chlorhexidine. 3. Uroxatral. 4. Metoprolol 50. 5. Levothyroxine 100. 6. Pravastatin 80. 7. Potassium. 8. Penicillin antibiotic 5 mg p.o. b.i.d. 9. Lantus 50 units subcutaneous q.a.m., Lantus 50 units at bedtime, digoxin 0.125 mg. 10. Fosinopril 40. 11. Eliquis 5 b.i.d. 12. Pristiq 100 mg p.o. daily. 13. Aspirin 81 mg a day. 14. Omeprazole 40. ALLERGIES: He is allergic to vancomycin, duloxetine. PHYSICAL EXAMINATION: Vital Signs: Blood pressure 131/53 jugular sinus pressure could not be assessed. First and second heart sounds were heard. There was no S3 gallop. Respiratory System: Distant breath sounds. Scattered wheeze. Abdomen: Soft. Bowel sounds heard. Central nervous system: Patient was answering questions in monosyllables, disoriented, detailed central nervous system examination not performed.. Extremities: edema bilaterally. LABORATORY EXAMINATION: On 09/06, sodium 144, potassium 4.3, BUN 64, creatinine 1.7. Magnesium earlier during this hospitalization was 2.8. Last echocardiogram earlier this year revealed ejection fraction of 55%. ASSESSMENT AND PLAN: 1. Mr. Fam Hernandez is a 75-year-old, gentleman who was admitted on 08/27/2016 for generalized deconditioning. He was noted to have significant dilated colon and ileus. He underwent decompression colonoscopy on 09/07/2016 and had an NG-tube placed. He significant NG-tube aspirate from his stomach. He had a 38 beat run of broad complex tachycardia. Currently he is in sinus rhythm. He has PACs with nonspecific ST-T changes. No acute changes to suggest infarction. He does not complain of chest pain. He has an extensive cardiac history in the past. He has had atrial fibrillation, atrial flutter status post cardioversion, coronary artery disease status post coronary artery bypass grafting 3 vessel, hypertension, diabetes, hypothyroidism, and chronic pain syndrome. Currently from a cardiac standpoint, he is in sinus rhythm. No further broad complex tachycardia should he have further episodes, We will give him IV amiodarone per standard protocol. In the interim all his serum potassium and magnesium are pending. His potassium earlier during this hospitalization and his magnesium levels were normal. However he has had decompression, colonoscopy and significant output from his NG tube to aspirate and he may well have electrolyte imbalance. If abnormal we will correct. He is on Lanoxin and in the setting of chronic renal insufficiency. We will also check serum digoxin level in the morning. 2. We will get a chest x-ray in the morning and get a limited echocardiogram to assess left ventricular systolic function. 3. He is anticoagulated with Eliquis and has beta-blockers on board. I have not made any other changes to his medications. Thank you for the consultation. We will follow. Sincerely, [facility]
[2016-09-08] MEDS ORDERED: BLISTEX MEDICATED BERRY LIP BALM TOP PRN (22:11)
[2016-09-08] MEDS: PRAVACHOL PO SCH (22:23)
[2016-09-08] MEDS: UROXATRAL PO SCH (22:24)
[2016-09-09 06:44] LABS: MANUAL DIFF NEEDED? NO
[2016-09-09 06:50] LABS: BASO% 0.3 % (0.0-0.8); EOS# 0.32 X1000 (0.0-0.7); EOS% 4.2 % (0.0-10.0); HEMATOCRIT 33.4 % (42.0-52.0); IMM GRAN# 0.03 X1000 (0.0-0.04); IMM GRAN% 0.4 % (0.0-0.5); LYMPH# 0.61 X1000 (1.2-3.4); LYMPH% 8.1 % (20.5-51.1); MCH 27.8 PG (27-31); MCHC 29.9 g/dL (33-37); MCV 92.8 FL (81-99); MONO# 0.51 X1000 (0.11-0.59); MONO% 6.7 % (1.7-9.3); MPV 11.9 FL (7.4-10.4); NEUT% 80.3 % (42.2-75.2); PLT 222 X1000 (130-400)
[2016-09-09 07:13] LABS: ALBUMIN 2.5 g/dL (3.5-5.0); CALCIUM 8.4 mg/dL (8.8-10.2); DIGOXIN 0.3 ng/mL (0.9-2.0); MAGNESIUM 2.2 mg/dL (1.5-2.7); TOTAL BILIRUBIN 0.55 mg/dL (0.20-1.00); TOTAL PROTEIN 5.5 g/dL (6.3-8.3)
[2016-09-09] MEDS: PRILOSEC PO SCH (07:16)
[2016-09-09] MEDS: HUMULIN R SUBQ SCH ×4 (07:18→21:26)
--- NOTE | 2016-09-09 08:39 | Diag Imaging Result Document ---
PROCEDURE NAME: CHEST-1 VIEW - 09/09/2016 PORTABLE CHEST X-RAY: COMPARISON: 08/27/2016. FINDINGS: Stable sternotomy wires. Stable granuloma in the left mid lung. No new or focal infiltrates. Heart size remains top normal. IMPRESSION: No acute disease or change from prior.
[2016-09-09] MEDS: NS 1,000 ML IV SCH ×3 (09:02→22:45)
[2016-09-09] MEDS: MIRALAX PO SCH ×3 (09:03→21:09)
[2016-09-09] MEDS: PERICOLACE PO SCH ×3 (09:04→21:08)
[2016-09-09] MEDS: ELIQUIS PO SCH ×2 (09:04→21:08)
[2016-09-09] MEDS: PERIDEX MT SCH ×2 (09:05→21:09)
[2016-09-09] MEDS: LANOXIN PO SCH (09:05)
[2016-09-09] MEDS: PEN VK PO SCH ×2 (09:05→21:22)
[2016-09-09] MEDS: ZETIA PO SCH (09:05)
[2016-09-09] MEDS: ASPIRIN PO SCH (09:05)
[2016-09-09] MEDS: TOPROL XL PO SCH (09:05)
[2016-09-09] MEDS: SYNTHROID PO SCH (09:05)
[2016-09-09] MEDS: MONOPRIL PO SCH (09:06)
[2016-09-09] MEDS: PRISTIQ ER PO SCH (09:06)
[2016-09-09] MEDS: LANTUS SUBQ SCH ×2 (09:18→21:26)
[2016-09-09] MEDS: POTASSIUM CHLORIDE 20 MEQ/SWI 100 ML IV SCH ×2 (09:27→11:16)
--- NOTE | 2016-09-09 09:52 | PROGRESS NOTE ---
DATE: 09/09/2016 SUBJECTIVE: Mr. Hernandez is comfortable. He has had no complaints. He is on BiPAP at present time, breathing comfortably. No chest pain. No abdominal pain. The abdomen is a little softer I think than even yesterday. OBJECTIVE: Vital Signs: Temp 98.9 degrees, pulse 90, respirations 12, blood pressure 132/61. Lungs: Clear in all lung aranda. Cardiovascular exam: Regular rhythm and rate without murmur or S3. Abdomen: Soft. Skin: Warm and dry. : Good urine output, 2 L. LABORATORY DATA: White count 7570, hematocrit 33, platelet count 222,000. Sodium 152, potassium 3.0, chloride 117, BUN 37, creatinine 1.2. Creatinine has come down from 1.5 yesterday. ASSESSMENT AND PLAN: 1. Yesterday developed a run of ventricular tachycardia. EKG was nonspecific, but concerned about coronary ischemia or maybe oxygen supply mismatch. He is already on Eliquis and beta blockers. We are supplementing electrolytes. He has no complaints of chest pain. He is on Lovenox in the setting of chronic renal insufficiency. We checked some labs. Yesterday, sodium was 147, potassium 3.0, chloride 113, BUN 46, creatinine 1.5, magnesium was 2.3. This morning sodium 152, potassium 3.0, chloride 114, BUN 37, creatinine 1.27. So, creatinine has improved. So, not sure whether he is having cardiac ischemia or not. His enzymes are negative, so that is a good sign. 2. Pseudo obstruction. It appears this may be a little better. He was decompressed 2 days ago with colonoscopy. I think we are seeing some improvement clinically. 3. Had a left quadriceps tear, which was repaired. 4. Morbid obesity, general weakness and deconditioning. Continue present therapy. He is in ICU and they moved him there yesterday evening. If stable, maybe he can go back to the floor today and will see how we do. Review of his orders: I do not see any changes at this point.
[2016-09-09] MEDS: TYLENOL PO PRN (14:01)
--- NOTE | 2016-09-09 14:11 | ECHO REPORT ---
ORDER DATE: 09/09/2016 ECHOCARDIOGRAPHIC MEASUREMENTS: 1. Interventricular septum: 1.1 cm. 2. Left ventricular posterior wall: 1.1 cm. 3. Diastolic diameter 4.6 cm. 4. Left atrium 4.2 cm. 5. Aorta 3.8 cm. SUMMARY OF THE 2-DIMENSIONAL IMAGIN. Normal left ventricular cavity size. Estimated ejection fraction of 55%-60%. 2. Aortic valve leaflets are trileaflet, calcified, opening normally. Pulmonic valve not well visualized. Mitral valve was normal. There is mitral annular calcification. Tricuspid valve was normal. 3. There is no aortic stenosis or regurgitation. There is trace mitral regurgitation. Trace tricuspid regurgitation. Peak velocity across the tricuspid valve less than 2 m/sec. 4. There is no pericardial effusion or obvious intracardiac mass or thrombi.
--- NOTE | 2016-09-09 15:32 | PROGRESS NOTE ---
DATE: 09/09/2016 SUBJECTIVE: transfered to unit for wide complex tachycardia last night that was transient. Otherwise no issues has bowel function, NG tube is in place. OBJECTIVE: Vital signs: Reviewed his vital signs. He is afebrile. No tachycardia, on 2 L nasal cannula. Abdominal exam: Is less distended but tympanic still, no tenderness and no peritonitis. Cardiovascular: Normal sinus rhythm this time. Pulmonary: No increased work of breathing. He is on CPAP machine. DATA: White count is normal, hematocrit 33, after review of his labs, his creatinine is 1.2, his potassium is low at 3.0 but his magnesium is normal. ASSESSMENT/PLAN: I have ordered him some IV potassium today. Continue nasogastric decompression and bowel rest but as his distention improves the next couple days would be okay to begin transition him off the NG tube and on to p.o. He needs aggressive electrolyte optimization with K greater than 4, magnesium greater than 2 in the setting of colonic ileus. [facility] CENTERRoxanna
[2016-09-09] MEDS: NORCO-10 PO PRN (18:20)
[2016-09-09] MEDS: UROXATRAL PO SCH (21:08)
[2016-09-09] MEDS: PRAVACHOL PO SCH (21:23)
[2016-09-10 05:45] LABS: AGAP 13; BUN 26 mg/dL (8-22); CALCIUM 8.7 mg/dL (8.8-10.2); CHLORIDE 115 mmol/L (98-107); COSMO 306; POTASSIUM 3.1 mmol/L (3.5-5.1); SODIUM 151 mmol/L (136-145); TCO2 23 mmol/L (25-35)
[2016-09-10] MEDS: NORCO-10 PO PRN (05:49)
[2016-09-10] MEDS: PRILOSEC PO SCH (06:24)
[2016-09-10] MEDS: HUMULIN R SUBQ SCH ×4 (06:53→21:16)
--- NOTE | 2016-09-10 07:55 | PROGRESS NOTE ---
DATE: 09/10/2016 SUBJECTIVE: Patient reports no major issues. No significant abdominal pain at this point. OBJECTIVE: Vital Signs: The patient has been afebrile. His vital signs have been stable. General: No acute distress. Alert and interactive. Cardiovascular: Regular rate and rhythm. Lungs: Grossly clear. Abdomen: Distended and tympanic. No tenderness or peritoneal signs. LABORATORY: BMP reviewed. Of note, patient's sodium is 151, potassium is 3.1. ASSESSMENT/PLAN: A 76-year-old male with [place] syndrome. Andie's: At this time, continued nasogastric decompression and bowel rest. He is having bowel movements. Would like to see some of the distention improve before starting p.o. and remove the NG tube. Would recommend continue replacing his electrolytes.
[2016-09-10] MEDS: ELIQUIS PO SCH ×2 (08:41→21:15)
[2016-09-10] MEDS: ASPIRIN PO SCH (08:41)
[2016-09-10] MEDS: MIRALAX PO SCH ×2 (08:41→21:15)
[2016-09-10] MEDS: MONOPRIL PO SCH (08:41)
[2016-09-10] MEDS: PERIDEX MT SCH ×2 (08:41→21:15)
[2016-09-10] MEDS: PRISTIQ ER PO SCH (08:42)
[2016-09-10] MEDS: PERICOLACE PO SCH ×2 (08:42→21:15)
[2016-09-10] MEDS: LANOXIN PO SCH (08:42)
[2016-09-10] MEDS: SYNTHROID PO SCH (08:42)
[2016-09-10] MEDS: TOPROL XL PO SCH (08:42)
[2016-09-10] MEDS: ZETIA PO SCH (08:42)
[2016-09-10] MEDS: PEN VK PO SCH ×2 (08:48→21:15)
[2016-09-10] MEDS: LANTUS SUBQ SCH ×2 (08:48→21:27)
[2016-09-10] MEDS: POTASSIUM CHLORIDE 20 MEQ/SWI 100 ML IV SCH ×2 (11:05→14:24)
--- NOTE | 2016-09-10 11:23 | PROGRESS NOTE ---
DATE: 09/10/2016 CHIEF COMPLAINT: Abdominal distention. REASON FOR CONSULTATION: Ventricular tachycardia. SUBJECTIVE: Mr. Hernandez has an NG tube. He is awake. He is not having any chest pain. He says that his abdomen is not bothering him very much. He denies having chest pain or shortness of breath. His rhythm is sinus. OBJECTIVE: Blood pressure is 145/54, temperature 98.8 degrees, respirations 20, pulse 94. He is awake, follows commands. HEENT is unremarkable. NG tube is in place. Chest: Diminished breath sounds at the bases. Heart sounds regular and rhythmic. No definite gallop or murmur. He does have the scar of sternotomy. His abdomen is distended. Bowel sounds diminished. Extremities showed good pulses. No edema. Neurologic: He follows commands and moves all 4 extremities. DIAGNOSTIC DATA: Sodium today is 151, potassium 3.1, BUN is 26, creatinine 1.1. His albumin is down to 2.5. White count is 7570. The most recent imaging study of the heart from 09/09/2016 shows ejection fraction is normal per Dr. Cody at 55% to 60%. No significant wall motion abnormality. Last chest x-ray that we have on record is from 09/09/2016, with no acute disease. IMPRESSION: 1. The patient presented to the hospital with contusion to the knee, general weakness. Subsequently he developed colonic ileus. Colonoscopy showed colitis of the right side of the colon. He seems to have improved. This is pseudoobstruction of the colon. 2. He has severe coronary artery disease and had a bout of nonsustained ventricular tachycardia which has not recurred. He has remote history of atrial fibrillation. He also has history of prior coronary revascularization in the past and history of hypertension. 3. He appears to be chronically deconditioned, morbidly obese. RECOMMENDATIONS: At this point in time, I would suggest to continue present measures under the direction of General Surgery, Dr. Dave and Dr. Chay Rayo. I would suggest to offer the method of deep venous thrombosis prophylaxis of your choice, either by anticoagulant by mouth or Lovenox or the sequential compression device for the lower extremities. I will follow him along. Further advice will depend on his clinical course.
--- NOTE | 2016-09-10 11:33 | PROGRESS NOTE ---
DATE: 09/10/2016 SUBJECTIVE: Mr. Hernandez feels better, being less tense and breathing comfortably. OBJECTIVE: Temperature 98.8 degrees, pulse 94, respirations 20, blood pressure 145/54. Lungs are clear in all lung aranda. Cardiovascular: Regular rhythm and rate without murmur or S3. Abdomen is soft. Skin is warm and dry. Still has NG tube in. They were going to take it out, but he had more nausea last night. He is tolerating some liquids, so we are doing intermittent suction at the present time. Urine output was about 5 L, so that is good. LABORATORY DATA: I reviewed from yesterday. Sodium 151, potassium 3.1, chloride 115. BUN 26, creatinine 1.1. Blood sugar is 137, 145, 120. ASSESSMENT AND PLAN: 1. Pseudo obstruction. Continue nasogastric decompression. His bowels look better, look softer, clinically improving. We will supplement some potassium today. 2. He has recently had his left quadriceps tendon repair. 3. He had an episode of ventricular tachycardia. Concerned about possible coronary ischemia. It does not appear that he has had any recent coronary ischemia. 4. Morbid obesity and deconditioning, aware. REVIEW OF ORDERS: I do not see anything to change at this time. He has hydrocodone for pain. He uses aspirin 81 mg a day. He is on Requip 100 mg a day, Eliquis 5 mg b.i.d., fosinopril 40 mg a day, Pravastatin 80 mg at bedtime, Levaquin 100 mcg daily, metoprolol 50 mg daily, and Uroxatral ER 10 mg at bedtime, Zetia 10 mg daily. He is on, I believe, normal saline at 75 mL an hour, and he is getting sennosides-docusate 1 b.i.d., MiraLAX 17 g b.i.d.
[2016-09-10] MEDS: NS 1,000 ML IV SCH (13:00)
[2016-09-10] MEDS: TYLENOL PO PRN (16:53)
[2016-09-10] MEDS: UROXATRAL PO SCH (21:15)
[2016-09-10] MEDS: PRAVACHOL PO SCH (21:15)
[2016-09-10] MEDS ORDERED: INSULIN PEN NEEDLES ONE (21:25)
[2016-09-11] MEDS: NS 1,000 ML IV SCH ×2 (02:36→15:10)
[2016-09-11] MEDS: HUMULIN R SUBQ SCH ×4 (06:39→20:32)
[2016-09-11] MEDS: PRILOSEC PO SCH (06:40)
[2016-09-11 09:26] LABS: HEMATOCRIT 35.9 % (42.0-52.0); HEMOGLOBIN 10.7 g/dL (14.0-18.0); MCH 27.6 PG (27-31); MCHC 29.8 g/dL (33-37); MCV 92.8 FL (81-99); MPV 11.7 FL (7.4-10.4); RBC 3.87 XMIL (4.7-6.1)
[2016-09-11 09:37] LABS: AGAP 12; BUN 18 mg/dL (8-22); CALCIUM 8.6 mg/dL (8.8-10.2); CHLORIDE 113 mmol/L (98-107); COSMO 299; POTASSIUM 2.9 mmol/L (3.5-5.1); SODIUM 149 mmol/L (136-145); TCO2 24 mmol/L (25-35)
[2016-09-11] MEDS: MIRALAX PO SCH ×2 (09:42→20:41)
[2016-09-11] MEDS: LANTUS SUBQ SCH (09:42)
[2016-09-11] MEDS: ASPIRIN PO SCH (09:44)
[2016-09-11] MEDS: TOPROL XL PO SCH (09:45)
[2016-09-11] MEDS: ZETIA PO SCH (09:45)
[2016-09-11] MEDS: PRISTIQ ER PO SCH (09:45)
[2016-09-11] MEDS: ELIQUIS PO SCH ×2 (09:45→20:41)
[2016-09-11] MEDS: MONOPRIL PO SCH (09:46)
[2016-09-11] MEDS: SYNTHROID PO SCH (09:46)
[2016-09-11] MEDS: LANOXIN PO SCH (09:47)
[2016-09-11] MEDS: PEN VK PO SCH ×2 (09:47→20:40)
[2016-09-11] MEDS: PERICOLACE PO SCH ×2 (09:47→20:39)
[2016-09-11] MEDS: PERIDEX MT SCH ×2 (09:48→20:41)
[2016-09-11 10:25] LABS: MAGNESIUM 1.7 mg/dL (1.5-2.7)
[2016-09-11] MEDS: POTASSIUM CHLORIDE 20 MEQ/SWI 100 ML IV SCH ×4 (10:46→20:42)
[2016-09-11] MEDS: NORCO-10 PO PRN (13:06)
--- NOTE | 2016-09-11 15:03 | PROGRESS NOTE ---
DATE: 09/11/2016 SUBJECTIVE: No major issues. Patient's NG tube has been clamped since midnight; no major issues. He reports some flatus but no bowel reported. OBJECTIVE: Vital Signs: Patient is currently afebrile. His vital signs have been stable. General Exam: No acute distress. Alert, interactive. Cardiovascular: Regular rate and rhythm. Lungs: Grossly clear. Abdomen: Distended and tympanic, essentially unchanged, but no tenderness to palpation or peritoneal signs. LABORATORY: No labs from this morning. ASSESSMENT AND PLAN: This is a 76-year-old male with a we since syndrome. [place] syndrome. At this time we will continue current treatment. Would like to see distention move before really advancing diet and removing NG tube. We will continue to follow along with you.
--- NOTE | 2016-09-11 15:34 | PROGRESS NOTE ---
DATE: 09/11/2016 CHIEF COMPLAINT: Abdominal distention. REASON FOR CONSULTATION: Ventricular tachycardia. SUBJECTIVE: Mr. Hernandez feels just about the same. He is not nauseous. He is not having any significant abdominal pain. No chest pain. No shortness of breath. He is maintaining sinus rhythm. No arrhythmia noted. OBJECTIVE: His blood pressure today is 159/72, temperature 97.6, pulse 95, respirations 18. He is awake, alert, oriented. Obese. NG tube in place; however, it has been clamped. HEENT is unremarkable. Chest shows diminished breath sounds at the bases. Heart sounds are regular and rhythmic. I do not hear gallop or murmur. Abdomen is quite obese. Bowel sounds diminished. Extremities showed palpable pulses. Trace edema. Neurologic: Follows commands. Moves all 4 extremities. DIAGNOSTIC DATA: Hemoglobin is 10.7, white count 6800. Sodium is 149, potassium 2.9, BUN is 18, creatinine 0.9, chloride 113, carbon dioxide is 24, magnesium 1.7. IMPRESSION: 1. The patient presented to the hospital with closed contusion to the knee. He developed general weakness and then colonic ileus. This seems to be improving. 2. Severe coronary artery disease. Previous coronary revascularization. 3. Hypertension. 4. Morbid obesity. 5. Nonsustained ventricular tachycardia. RECOMMENDATIONS: At this point in time, we will keep trying to optimize the patient's general condition. He is still very debilitated. Further advice will be forthcoming.
[2016-09-11] MEDS ORDERED: MAGNESIUM SULFATE 2 GM/S.W.I. 50 ML IV ONE (15:41)
[2016-09-11] MEDS: ROCEPHIN 1 GM/NS 50 ML IV SCH (15:46)
[2016-09-11 15:52] LABS: URINE SOURCE CATH
[2016-09-11 16:00] LABS: BILIRUBIN URINE NEGATIVE (NEGATIVE); BLOOD URINE SMALL (NEGATIVE); CLARITY CLEAR (CLEAR); COLOR YELLOW; GLUCOSE URINE NEGATIVE (NEGATIVE); LEUKOCYTES URINE SMALL (NEGATIVE); NITRITE URINE POSITIVE (NEGATIVE); PROTEIN URINE TRACE mg/dL (NEGATIVE); SP GRAVITY URINE 1.015; UROBILINOGEN URINE 0.2 EU/dL (0.2-1.0)
[2016-09-11 16:03] LABS: URINE CULTURE NEEDED? YES; URINE RBC <10 /HPF (<10); URINE WBC <10 /HPF (<10)
[2016-09-11 16:04] LABS: URINE CAST NONE SEEN /LPF; URINE CRYSTAL TRIPLE PHOS PRESENT /HPF; URINE EPITHELIAL CELLS <10 /HPF (<10)
[2016-09-11] MEDS: D50W SYRINGE IV PRN ×2 (16:27→17:48)
--- NOTE | 2016-09-11 16:38 | PROGRESS NOTE ---
DATE: 09/11/2016 SUBJECTIVE: Mr. Hernandez is feeling better. No nausea or pain at this time. Dr. Thomas is following. Decided to leave the NGT tube in. Abdomen is definitely softer. Appears the pseudo- obstruction is resolving or improving. OBJECTIVE: Vital signs: Temp 97.8 degrees, pulse 89, respirations 18, blood pressure 169/60. Lungs: Clear in all lung aranda. Cardiovascular: Regular rhythm and rate without murmur or S3. Intake and output: Good urine output, almost a liter. LAB: Review of lab from the . Will check some more lab this morning. Blood sugars look good. ASSESSMENT AND PLAN: 1. Pseudo-obstruction, slow improvement. He did get a colonoscopy with decompression last week. 2. Left quadriceps tendon repair, healing. 3. Had an episode of ventricular ectopy. Concern about possible ischemia. It does not appear that he had any significant cardiac ischemia at this time. 4. Morbid obesity with deconditioning. 5. Nutrition. No p.o. intake right now because of NG tube. REVIEW OF HIS ORDERS: I reviewed the orders and I do not see any change at this point. I think we need to consider IV nutrition though.
[2016-09-11] MEDS ORDERED: POTASSIUM CHLORIDE 20 MEQ/SWI 100 ML IV SCH (17:00)
[2016-09-11] MEDS: PRAVACHOL PO SCH (20:39)
[2016-09-11] MEDS: UROXATRAL PO SCH (20:40)
[2016-09-12 03:13] LABS: HEMATOCRIT 38.1 % (42.0-52.0); HEMOGLOBIN 11.5 g/dL (14.0-18.0); MCH 28.1 PG (27-31); MCHC 30.2 g/dL (33-37); MCV 93.2 FL (81-99); MPV 11.8 FL (7.4-10.4); RBC 4.09 XMIL (4.7-6.1)
[2016-09-12 03:33] LABS: AGAP 13; BUN 14 mg/dL (8-22); CALCIUM 8.6 mg/dL (8.8-10.2); CHLORIDE 110 mmol/L (98-107); COSMO 293; POTASSIUM 3.3 mmol/L (3.5-5.1); SODIUM 148 mmol/L (136-145); TCO2 25 mmol/L (25-35)
[2016-09-12] MEDS: LANTUS SUBQ SCH ×3 (06:26→21:17)
[2016-09-12] MEDS: HUMULIN R SUBQ SCH ×4 (06:27→21:16)
[2016-09-12] MEDS: PRILOSEC PO SCH (07:24)
[2016-09-12] MEDS: NS 1,000 ML IV SCH (07:26)
--- NOTE | 2016-09-12 09:54 | PROGRESS NOTE ---
DATE: 09/12/2016 SUBJECTIVE: Mr. Hernandez feels better. He has still got his NG tube. Still significant clear suction from the NG tube. OBJECTIVE: Abdomen: Softer. Hurting much less. No pain. He does not have any complaints on the abdomen today. No chest pain. Vital Signs: Temperature 96.3 degrees, pulse 86, respirations 15, blood pressure 129/66. Lungs: Clear in all lung aranda. Cardiovascular: Regular rhythm and rate without murmur or S3. Abdomen: Soft. Skin is warm and dry. Good urine output mL. LABORATORY DATA: White count 7460, hematocrit 38, platelet count 241,000. Sodium 148, potassium 3.3, chloride 110, bicarb 25, BUN 14, creatinine 0.9, blood sugar 106-76-70. ASSESSMENT AND PLAN: 1. Pseudo obstruction which is improving clinically. Abdomen soft. He had a bowel movement apparently yesterday. 2. Left quadriceps tendon repair. Still in brace but we will continue physical therapy. Try and get him a little stronger. 3. Episode of ventricular ectopy. No sign of cardiac ischemia at this point and has remained hemodynamically stable. 4. Morbid obesity. Deconditioning. Continue physical therapy. 5. Nutrition. We need to put a PICC line so we can start him on parenteral nutrition.
[2016-09-12] MEDS: CLINIMIX E 4.25%-5% SOLUTION 1,000 ML IV SCH ×2 (10:05→20:09)
[2016-09-12] MEDS: MONOPRIL PO SCH (10:07)
[2016-09-12] MEDS: LANOXIN PO SCH (10:08)
[2016-09-12] MEDS: MIRALAX PO SCH ×2 (10:08→20:09)
[2016-09-12] MEDS: PERICOLACE PO SCH ×2 (10:09→20:08)
[2016-09-12] MEDS: TOPROL XL PO SCH (10:09)
[2016-09-12] MEDS: PRISTIQ ER PO SCH (10:09)
[2016-09-12] MEDS: ZETIA PO SCH (10:09)
[2016-09-12] MEDS: PERIDEX MT SCH ×2 (10:10→20:08)
[2016-09-12] MEDS: SYNTHROID PO SCH (10:10)
[2016-09-12] MEDS: ASPIRIN PO SCH (10:10)
[2016-09-12] MEDS: ELIQUIS PO SCH ×2 (10:10→20:08)
[2016-09-12] MEDS: PEN VK PO SCH ×2 (10:16→20:17)
[2016-09-12 10:17] LABS: INR 1.13
[2016-09-12] MEDS ORDERED: NS 250 ML ONE (12:44)
--- NOTE | 2016-09-12 13:28 | PROGRESS NOTE ---
DATE: 09/12/2016 SUBJECTIVE: The patient denies abdominal pain, nausea, or vomiting. He does feel a little bloated. He said he had a bowel movement this morning. OBJECTIVE: Vital signs: He is afebrile. Vital signs are stable. NG tube output 450 mL over the last 24 hours. GI: Soft. Moderately distended and tympanic. Hypoactive bowel sounds. Nontender. General: He is alert and oriented x4. No acute distress. LABORATORY: Potassium 3.3, magnesium 1.9, BUN 14, creatinine 0.9. ASSESSMENT AND PLAN: This is a 76-year-old male with small bowel and colonic ileus status post left quadriceps tendon repair. He continues to have slow return of gut function. I would continue keeping his NG tube clamped with intermittent residual checks and allowing him sips of water and ice. I agree with starting parental nutrition and aggressively working to keep his potassium and magnesium in the normal range. Hopefully as his mobility improves and he spends more time out of bed, his gut function will slowly improve. There are no surgical indications at this time.
[2016-09-12] MEDS: ROCEPHIN 1 GM/NS 50 ML IV SCH (15:30)
--- NOTE | 2016-09-12 16:47 | PROGRESS NOTE ---
DATE: 09/12/2016 SUBJECTIVE: The patient reports no new complaints. He has been taking sips of water. However NG tube is in place and has been clamped this morning his aspirate was only about 100 mL. Since then, the NG tube has been clamped. He denies any abdominal pain, abdominal cramp. He has been passing flatus and had loose bowel movements. OBJECTIVE: Vitals temperature 96.3 degrees, pulse 86 per minute, regular breathing at a rate of 15, blood pressure 129/66. Abdomen is slightly distended but less than yesterday. Abdomen remains soft and nontender. No mass or visceromegaly noted. Bowel sounds were hyperactive and normal tympanic LABS: Reviewed. IMPRESSION: 1. Dilated colon most likely pseudoobstruction or ileus. 2. Colitis involving the right colon biopsy pending. PLAN: At this point he has responded well to current treatment that is supportive medical treatment. No new suggestions except continue MiraLAX and maintain vitals. If the NG aspirate remains low may discontinue NG tube and start him on clear liquid to advance as tolerated. In the meantime continue to get him off the bed onto the chair and keep changing his position in the bed.
[2016-09-12] MEDS: UROXATRAL PO SCH (20:07)
[2016-09-12] MEDS: PRAVACHOL PO SCH (20:08)
[2016-09-13] MEDS: HUMULIN R SUBQ SCH ×4 (06:43→21:26)
[2016-09-13] MEDS: PRILOSEC PO SCH (06:46)
[2016-09-13] MEDS: CLINIMIX E 4.25%-5% SOLUTION 1,000 ML IV SCH ×2 (07:04→15:35)
--- NOTE | 2016-09-13 08:29 | PROGRESS NOTE ---
DATE: 09/12/2016 ADDENDUM: Note, the urine showed infection and we did start him on Rocephin yesterday. We will continue that. REVIEW OF ORDERS: He is on Rocephin 1 g every 24 hours. He is on [place]ace 1 b.i.d. He is on MiraLAX 17 g b.i.d. He is on Peridex 15 mL b.i.d. Normal saline at 75 mL an hour. Zetia 10 mg a day. Uroxatral 10 mg at bedtime. Metoprolol 50 mg a day. Synthroid 100 mcg daily. Prevacid 80 mg at bedtime. He takes his penicillin V, potassium, which he takes that b.i.d. Lantus 50 units subcutaneously q.a.m. and 50 units subcutaneously at bedtime. Digoxin 125 mcg a day, Monopril 40 mg a day, Eliquis 5 mg b.i.d., Pristiq ER 100 mg daily, aspirin 81 mg a day, Prilosec 40 mg a day.
[2016-09-13] MEDS: MONOPRIL PO SCH (09:17)
[2016-09-13] MEDS: PEN VK PO SCH ×2 (09:19→21:25)
[2016-09-13] MEDS: ASPIRIN PO SCH (09:20)
[2016-09-13] MEDS: TOPROL XL PO SCH (09:21)
[2016-09-13] MEDS: PERICOLACE PO SCH ×2 (09:21→21:26)
[2016-09-13] MEDS: SYNTHROID PO SCH (09:21)
[2016-09-13] MEDS: ELIQUIS PO SCH ×2 (09:22→21:26)
[2016-09-13] MEDS: PRISTIQ ER PO SCH (09:22)
[2016-09-13] MEDS: ZETIA PO SCH (09:24)
[2016-09-13] MEDS: LANOXIN PO SCH (09:24)
[2016-09-13] MEDS: MIRALAX PO SCH ×2 (09:25→21:27)
[2016-09-13] MEDS: PERIDEX MT SCH ×2 (09:25→21:27)
[2016-09-13] MEDS: LANTUS SUBQ SCH ×2 (09:26→21:26)
--- NOTE | 2016-09-13 13:39 | PROGRESS NOTE ---
DATE: 09/13/2016 SUBJECTIVE: He is feeling good, still has an NG tube in. No nausea. Belly feels softer. OBJECTIVE: Temperature 98.5 degrees, pulse 86, respirations 24, blood pressure 182/78. Lungs are clear in all lung aranda. Cardiovascular: Regular rhythm and rate without murmur or S3. Abdomen is soft. Skin is warm and dry. Good urine output. 1600 mL. LABORATORY DATA: Blood sugar 103, 98, 142. The electrolytes from 09/12/2016. ASSESSMENT AND PLAN: 1. Dilated colon, most likely pseudo obstruction improving. Continue NG suction. Hopefully, we can stop this soon. He still has a copious amount. Hopefully, we can stop the NG suction. If it remains low, discontinue. 2. Colitis involving right colon, biopsy pending. 3. Left quadriceps tendon repair. He will immobilize. 4. Nutrition. Getting parental nutrition. Hopefully, he can stop NG tube and start feeding him fairly soon. 5. Morbid obesity, deconditioning. 6. He had an episode of ventricular ectopy which is resolved, still managing and supplementing electrolytes as needed. Recheck his electrolytes today and tomorrow.
[2016-09-13 13:56] LABS: AGAP 10; BUN 17 mg/dL (8-22); CALCIUM 8.2 mg/dL (8.8-10.2); CHLORIDE 100 mmol/L (98-107); COSMO 281; POTASSIUM 2.9 mmol/L (3.5-5.1); SODIUM 138 mmol/L (136-145); TCO2 28 mmol/L (25-35)
[2016-09-13] MEDS: ROCEPHIN 1 GM/NS 50 ML IV SCH (15:35)
[2016-09-13] MEDS: PRAVACHOL PO SCH (21:25)
[2016-09-13] MEDS: UROXATRAL PO SCH (21:26)
[2016-09-14] MEDS: CLINIMIX E 4.25%-5% SOLUTION 1,000 ML IV SCH ×3 (02:39→21:34)
[2016-09-14 05:53] LABS: AGAP 9; BUN 19 mg/dL (8-22); CALCIUM 8.6 mg/dL (8.8-10.2); CHLORIDE 101 mmol/L (98-107); COSMO 282; MAGNESIUM 1.6 mg/dL (1.5-2.7); POTASSIUM 3.2 mmol/L (3.5-5.1); SODIUM 138 mmol/L (136-145); TCO2 28 mmol/L (25-35)
[2016-09-14] MEDS: PRILOSEC PO SCH (06:43)
[2016-09-14] MEDS: HUMULIN R SUBQ SCH ×4 (06:43→21:38)
[2016-09-14] MEDS ORDERED: INSULIN PEN NEEDLES ONE (09:29)
[2016-09-14] MEDS: PRISTIQ ER PO SCH (09:35)
[2016-09-14] MEDS: MONOPRIL PO SCH (09:36)
[2016-09-14] MEDS: ASPIRIN PO SCH (09:36)
[2016-09-14] MEDS: ELIQUIS PO SCH ×2 (09:37→21:35)
[2016-09-14] MEDS: TOPROL XL PO SCH (09:37)
[2016-09-14] MEDS: PERICOLACE PO SCH ×2 (09:37→21:33)
[2016-09-14] MEDS: LANOXIN PO SCH (09:38)
[2016-09-14] MEDS: ZETIA PO SCH (09:39)
[2016-09-14] MEDS: SYNTHROID PO SCH (09:39)
[2016-09-14] MEDS: PEN VK PO SCH ×2 (09:39→21:33)
[2016-09-14] MEDS: MIRALAX PO SCH ×2 (09:41→21:34)
[2016-09-14] MEDS: PERIDEX MT SCH ×2 (09:41→21:33)
[2016-09-14] MEDS: LANTUS SUBQ SCH ×2 (09:41→21:53)
--- NOTE | 2016-09-14 15:46 | PROGRESS NOTE ---
DATE: 09/14/2016 SUBJECTIVE: He has his NG tube out. Feeling good. Abdomen is soft, no pain. Breathing comfortably. OBJECTIVE: Vital signs: Temp 98.3 degrees, pulse 100, respirations 20, blood pressure 157/94. Lungs: Clear in all lung aranda. Cardiovascular: Regular rhythm and rate without murmur or S3. Abdomen: Soft. Skin: Warm and dry. Intake and output: Good urine output, over 3 L. LAB: Looks good. Sodium 138, potassium 3.2, chloride 101, BUN 19, creatinine 0.9, blood sugar 183, 178, 215. ASSESSMENT AND PLAN: 1. Dilated colon, most likely pseudo obstruction, improved. 2. He has colitis of the right colon. Biopsy is pending. 3. Left quadriceps tendon repair. Still immobilized. Starting physical therapy for range of motion and cannot weight bear yet. 4. Nutrition. Getting parenteral nutrition. NG tube out. Hopefully we can go advance his p.o. intake. 5. Morbid obesity. 6. Had an episode ventricular ectopy which has resolved. REVIEW OF ORDERS: I do not see any changes at this point. He is on the Clinimix at 100 mL q.1 hour, ceftriaxone q.24 hours, MiraLAX 17 g b.i.d. Potassium a little low. Magnesium was okay. We will give him a little potassium p.o..
[2016-09-14] MEDS: ROCEPHIN 1 GM/NS 50 ML IV SCH (15:59)
--- NOTE | 2016-09-14 16:51 | PROGRESS NOTE ---
DATE: 09/14/2016 SUBJECTIVE: Patient denies nausea or vomiting. He is tolerating some clear liquids. He has passed gas today and had a small liquid bowel movement. OBJECTIVE: Vital signs: He is a afebrile, pulse 103, blood pressure 127/68. General: Alert and oriented x4. No acute distress. GI: Soft, distended, tympanic. He does have bowel sounds. He is nontender. LABORATORY: Potassium 3.2. ASSESSMENT AND PLAN: A 76-year-old male with postoperative ileus. He continues to be distended and to have slow return of bowel function. He seems to be tolerating a clear liquid diet. I am going to advance him to full liquids, but I will hold off on feeding him regular food until we get better decrease in distention. Recommend continued observation and treatment of his hypokalemia.
[2016-09-14] MEDS: PRAVACHOL PO SCH (21:34)
[2016-09-14] MEDS: UROXATRAL PO SCH (21:34)
[2016-09-14] MEDS: NORCO-10 PO PRN (21:41)
[2016-09-15] MEDS: PRILOSEC PO SCH (06:26)
[2016-09-15] MEDS: HUMULIN R SUBQ SCH ×4 (06:29→21:08)
[2016-09-15] MEDS: CLINIMIX E 4.25%-5% SOLUTION 1,000 ML IV SCH ×2 (07:49→17:55)
[2016-09-15] MEDS: NORCO-10 PO PRN (09:34)
[2016-09-15] MEDS: MONOPRIL PO SCH (09:34)
[2016-09-15] MEDS: PRISTIQ ER PO SCH (09:35)
[2016-09-15] MEDS: LANOXIN PO SCH (09:36)
[2016-09-15] MEDS: SYNTHROID PO SCH (09:36)
[2016-09-15] MEDS: TOPROL XL PO SCH (09:36)
[2016-09-15] MEDS: ASPIRIN PO SCH (09:37)
[2016-09-15] MEDS: ELIQUIS PO SCH ×2 (09:37→21:05)
[2016-09-15] MEDS: ZETIA PO SCH (09:37)
[2016-09-15] MEDS: MIRALAX PO SCH ×2 (09:38→21:03)
[2016-09-15] MEDS: PERIDEX MT SCH ×2 (09:38→21:05)
[2016-09-15] MEDS: PERICOLACE PO SCH ×2 (09:38→21:05)
[2016-09-15] MEDS: LANTUS SUBQ SCH ×2 (09:39→21:04)
[2016-09-15] MEDS ORDERED: POTASSIUM CHLORIDE 40 MEQ/SWI 100 ML IV ONE (10:10)
--- NOTE | 2016-09-15 10:30 | PROGRESS NOTE ---
DATE: 09/15/2016 SUBJECTIVE: He is doing much better. He is on full liquids and tolerating it well. His abdomen is soft. He has had a bowel movement yesterday. No chest pain. No complaints. OBJECTIVE: Vital Signs: Temperature 99 degrees, pulse 85, respirations 15, blood pressure 108/63. Lungs: Clear in all lung aranda. Cardiovascular: Regular rhythm and rate without murmur or S3. Abdomen: Soft. Skin is warm and dry. Urine Output: Good urine output at 2000 mL. LABORATORY DATA: Sodium 138, potassium 3.2, chloride 101, bicarbonate 28, BUN 19, creatinine 0.9. His magnesium 1.6. Blood sugar is 183 to 178 with 215 and 205. ASSESSMENT AND PLAN: 1. Dilated colon with pseudoobstruction, doing better. Advance his diet. He continues to have some distention, although slow return of bowel function, so we will advance diet as we can, and clinically he is doing better. Nasogastric tube is out. Hold off on feeding until further diminished distention. 2. Left quadriceps tear with repair, surgical repair, doing well. 3. Morbid obesity and deconditioning. 4. Nutrition. He is on parenteral nutrition, which I will continue for now. Hopefully, we can get him to a floor. 5. Review of his laboratories, we will supplement his potassium. Magnesium looks okay. REVIEW OF ORDERS/MEDICATIONS: He is still on Rocephin 1 gram every day. He is getting Clinimix at 100 mL an hour, Synthroid 100 mcg daily, Toprol-XL 50 mg daily, Uroxatral 10 mg every night at bedtime, Zetia 10 mg every day, Lantus 50 units every night at bedtime and 50 units every a.m., digoxin 125 mcg every day, Monopril 40 mg a day, Eliquis 5 mg b.i.d., Pristiq 100 mg every day, aspirin 81 mg a day, Prilosec 40 mg a day. He takes hydrocodone as needed for pain.
[2016-09-15] MEDS: PEN VK PO SCH ×2 (10:50→21:05)
[2016-09-15] MEDS: ROCEPHIN 1 GM/NS 50 ML IV SCH (16:47)
--- NOTE | 2016-09-15 19:13 | PROGRESS NOTE ---
DATE: 09/15/2016 SUBJECTIVE: The patient denies any abdominal pain, nausea, or vomiting. He has passed flatus today. He is tolerating full liquids. OBJECTIVE: Vital signs: He is afebrile. His vital signs are stable. General: Alert and oriented x3. No acute distress. GI: Soft, protuberant, tympanic and moderately distended, about the same as yesterday. Nontender. He does have bowel sounds. LABORATORY: None available today. ASSESSMENT AND PLAN: A 76-year-old male with ileus status post recent orthopedic surgery. He is slowly recovering. We will keep him on a full liquid diet for now. As his distention improves, he can be advanced to a regular diet.
[2016-09-15] MEDS: UROXATRAL PO SCH (21:05)
[2016-09-15] MEDS: PRAVACHOL PO SCH (21:05)
[2016-09-16] MEDS: NORCO-10 PO PRN ×2 (04:54→21:16)
[2016-09-16] MEDS: CLINIMIX E 4.25%-5% SOLUTION 1,000 ML IV SCH ×2 (06:05→14:26)
[2016-09-16] MEDS: HUMULIN R SUBQ SCH ×4 (06:06→21:24)
[2016-09-16] MEDS: PRILOSEC PO SCH (06:13)
[2016-09-16] MEDS ORDERED: INSULIN PEN NEEDLES ONE (06:16)
[2016-09-16] MEDS: LANTUS SUBQ SCH ×2 (08:31→21:10)
[2016-09-16] MEDS: MONOPRIL PO SCH (08:31)
[2016-09-16] MEDS: PERIDEX MT SCH ×2 (08:32→21:11)
[2016-09-16] MEDS: TOPROL XL PO SCH (08:32)
[2016-09-16] MEDS: PRISTIQ ER PO SCH (08:32)
[2016-09-16] MEDS: SYNTHROID PO SCH (08:32)
[2016-09-16] MEDS: ELIQUIS PO SCH ×2 (08:32→21:10)
[2016-09-16] MEDS: ASPIRIN PO SCH (08:32)
[2016-09-16] MEDS: PEN VK PO SCH ×2 (08:32→21:10)
[2016-09-16] MEDS: ZETIA PO SCH (08:32)
[2016-09-16] MEDS: PERICOLACE PO SCH ×2 (08:32→21:10)
[2016-09-16] MEDS: LANOXIN PO SCH (08:32)
[2016-09-16] MEDS: MIRALAX PO SCH ×2 (09:15→21:11)
--- NOTE | 2016-09-16 13:54 | PROGRESS NOTE ---
DATE: 09/16/2016 SUBJECTIVE: He feels better. Tummy is softer, is getting down full liquids well he had family there, couple of his granddaughters there and no complaints of pain or distress. Breathing comfortably. PHYSICAL EXAMINATION: Vital Signs: Temperature 98.1 degrees, pulse 87, respirations 21, blood pressure 104/57. Lungs: Clear anterolateral. Cardiovascular: Regular rhythm, rate without murmur or S3. Abdomen: Soft. Skin: Warm and dry. : Good urine output over 2700 mL. DATA: Electrolytes unremarkable, blood sugar 230, 165, 168. ASSESSMENT AND PLAN: 1. Pseudoobstruction improving slowly. Had recent left quadriceps tendon repair. 2. Quadriceps tendon repair of left leg which is healing. Continue physical therapy. Not able to put full weight on yet and still has his leg brace keep it from having full flexion. 3. Had an episode of ventricular tachycardia. 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 Looking over his orders he is still on the amino acids. I think we can probably stop those. Continue advance diet as we can. He is on Eliquis 5 mg b.i.d., Monopril 40 mg a day, aspirin 81 mg a day, Prilosec 40 mg daily, Uroxatral ER 10 mg at bedtime, Zetia 10 mg daily and we got him on the Lantus insulin 50 units twice a day, Lanoxin 125 mcg a day. Continue ceftriaxone although I think we could probably stop that at this point. From the urine he grew out Serratia fonticola and he has had treatment for this since the . Sent him off stool for Clostridium. It was negative. Will continue present regimen.
--- NOTE | 2016-09-16 14:06 | PROGRESS NOTE ---
DATE: 09/16/2016 SUBJECTIVE: The patient denies abdominal pain, nausea, or vomiting. He does report passage of flatus and a bowel movement today. He has been tolerating his full liquid diet. He reports to me that his abdomen does not feel more distended or tighter than it typically does at home. OBJECTIVE: Vital signs: He is afebrile. His vital signs are stable. General: Alert and oriented x4. No acute distress. GI: Soft, obese, distended and tympanic. He does have some bowel sounds. He is nontender. LABORATORY: None today. ASSESSMENT AND PLAN: A 76-year-old male with a ileus after recent orthopedic surgery. He is tolerating full liquids and having bowel function. He does remain distended but does not feel particularly sick. It is unclear what his baseline is at home. He comorbidities or complicated by decreased mobility and morbid obesity with a BMI over 40. I think at this point, it is reasonable to try to advance his diet to a soft diet.
[2016-09-16] MEDS: UROXATRAL PO SCH (21:10)
[2016-09-16] MEDS: PRAVACHOL PO SCH (21:10)
[2016-09-16] MEDS: ROCEPHIN 1 GM/NS 50 ML IV SCH (21:24)
[2016-09-17] MEDS: CLINIMIX E 4.25%-5% SOLUTION 1,000 ML IV SCH ×3 (00:10→20:36)
[2016-09-17] MEDS: PRILOSEC PO SCH (06:25)
[2016-09-17] MEDS: HUMULIN R SUBQ SCH ×4 (06:26→20:49)
[2016-09-17] MEDS: SYNTHROID PO SCH (09:30)
[2016-09-17] MEDS: MONOPRIL PO SCH (09:30)
[2016-09-17] MEDS: PRISTIQ ER PO SCH (09:30)
[2016-09-17] MEDS: ELIQUIS PO SCH ×2 (09:30→20:48)
[2016-09-17] MEDS: ASPIRIN PO SCH (09:30)
[2016-09-17] MEDS: LANOXIN PO SCH (09:30)
[2016-09-17] MEDS: PERIDEX MT SCH ×2 (09:31→20:48)
[2016-09-17] MEDS: PERICOLACE PO SCH ×2 (09:31→20:48)
[2016-09-17] MEDS: ZETIA PO SCH (09:31)
[2016-09-17] MEDS: PEN VK PO SCH ×2 (09:31→20:56)
[2016-09-17] MEDS: MIRALAX PO SCH ×2 (09:31→20:48)
[2016-09-17] MEDS: TOPROL XL PO SCH (09:31)
[2016-09-17] MEDS: LANTUS SUBQ SCH ×2 (09:32→20:49)
--- NOTE | 2016-09-17 14:35 | PROGRESS NOTE ---
DATE: 09/17/2016 SUBJECTIVE: Mr. Hernandez feels better. He is getting a little bit of food down. Abdomen feels about the same, it is soft. I think he is having bowel movements. He appears comfortable, no complaints. OBJECTIVE: Vital Signs: Temperature 97.8 degrees, pulse 85, respirations 20, blood pressure 153/62. Lungs: Clear in all lung aranda. Cardiovascular: Regular rate without murmur or S3. Abdomen: Soft. Skin: Warm and dry. Good urine output. LAB: Reviewed from the : Chemistries. We will repeat. So we have not had chemistries in a couple days. Blood sugar 173, 168, 104, 133. ASSESSMENT AND PLAN: 1. Pseudo obstruction. He has had a recent orthopedic surgery with a left quadriceps tendon repair. He is tolerating full liquids and having some bowel function, so we want to advance very slowly. Continue peripheral nutrition. 2. Left quadriceps tear with surgical repair, doing well. 3. Obesity, deconditioning. Continue physical therapy. Before he had a single episode of ventricular tachycardia I suspect he has some underlying coronary artery disease. No sign of recent cardiac ischemia. REVIEW OF HIS ORDERS: Will continue present regimen. I do not see anything to change at this point. He is still on ceftriaxone 1 g q.24 hours. I think we can get close to being able to stop that. We will continue his peripheral nutrition. His urine grew out Serratia fonticola which is sensitive to ceftriaxone. I think we will continue the ceftriaxone until able to get the Serrano catheter out and leave it out.
[2016-09-17] MEDS: ROCEPHIN 1 GM/NS 50 ML IV SCH (20:45)
[2016-09-17] MEDS: PRAVACHOL PO SCH (20:48)
[2016-09-17] MEDS: UROXATRAL PO SCH (20:56)
[2016-09-18] MEDS: PRILOSEC PO SCH (06:23)
[2016-09-18] MEDS: HUMULIN R SUBQ SCH ×4 (06:23→20:31)
[2016-09-18] MEDS: CLINIMIX E 4.25%-5% SOLUTION 1,000 ML IV SCH ×2 (06:23→17:45)
[2016-09-18] MEDS: NORCO-10 PO PRN ×2 (06:30→17:45)
[2016-09-18] MEDS: PERICOLACE PO SCH ×2 (09:43→20:30)
[2016-09-18] MEDS: MONOPRIL PO SCH (09:43)
[2016-09-18] MEDS: PRISTIQ ER PO SCH (09:43)
[2016-09-18] MEDS: ASPIRIN PO SCH (09:44)
[2016-09-18] MEDS: ELIQUIS PO SCH ×2 (09:44→20:31)
[2016-09-18] MEDS: PERIDEX MT SCH ×2 (09:44→20:31)
[2016-09-18] MEDS: LANOXIN PO SCH (09:44)
[2016-09-18] MEDS: SYNTHROID PO SCH (09:44)
[2016-09-18] MEDS: PEN VK PO SCH ×2 (09:44→20:31)
[2016-09-18] MEDS: TOPROL XL PO SCH (09:44)
[2016-09-18] MEDS: ZETIA PO SCH (09:44)
[2016-09-18] MEDS: MIRALAX PO SCH ×2 (09:44→20:30)
[2016-09-18] MEDS: LANTUS SUBQ SCH ×2 (09:45→20:29)
--- NOTE | 2016-09-18 16:46 | PROGRESS NOTE ---
DATE: 09/18/2016 SUBJECTIVE: Mr. Hernandez feels better. He says his bowels have been moving. At that time, he feels softer, he feels a little stronger. OBJECTIVE: Vital signs: Temperature 98.7 degrees, pulse 88, respirations 20, blood pressure 152/55. Lungs: Are clear in all lung aranda. Cardiovascular: Regular rhythm and rate without murmur or S3. Good urine output. LABORATORY: Reviewed. Blood sugars 160, 166, 162. We will check his chemistries again tomorrow and see what we have. I reviewed his orders. I do not see anything to change at this point. We are treating him for a urinary tract infection with ceftriaxone. I think we can stop that tomorrow. ASSESSMENT AND PLAN: 1. Pseudo-obstruction, seems to be getting better. 2. Left quadriceps tendon repair. Tolerating full liquids. Advance very slowly, continue peripheral nutrition. 3. Obesity. Deconditioning. Continue physical therapy. 4. Had an episode of ventricular tachycardia. No sign of cardiac ischemia at this time. 5. Urinary tract infection. I think we can probably stop the antibiotics tomorrow, hopefully can get the Serrano catheter out.
[2016-09-18] MEDS ORDERED: INSULIN PEN NEEDLES ONE (20:19)
[2016-09-18] MEDS: ROCEPHIN 1 GM/NS 50 ML IV SCH (20:27)
[2016-09-18] MEDS: UROXATRAL PO SCH (20:30)
[2016-09-18] MEDS: PRAVACHOL PO SCH (20:30)
[2016-09-19] MEDS: CLINIMIX E 4.25%-5% SOLUTION 1,000 ML IV SCH ×2 (02:31→11:21)
[2016-09-19] MEDS: NORCO-10 PO PRN (06:37)
[2016-09-19] MEDS: PRILOSEC PO SCH (06:37)
[2016-09-19] MEDS: HUMULIN R SUBQ SCH ×4 (06:39→21:44)
--- NOTE | 2016-09-19 08:44 | PROGRESS NOTE ---
DATE: 09/19/2016 SUBJECTIVE: He feels well. No abdominal pain. He is eating, having bowel function with 2 bowel movements yesterday. OBJECTIVE: Vital Signs: Temperature is 98.4 degrees, pulse 84, blood pressure 148-57, oxygen saturation 94% on room air. General: He is alert, no acute distress. Abdomen: Abdominal exam is soft, distended, but less so than previous. Mildly tympanic but nontender. Skin: Otherwise warm and dry. LABORATORY DATA: Blood glucose 157, no other new labs recently. ASSESSMENT: A 76-year-old male with colonic ileus/pseudo obstruction status post orthopedic procedure. This appears to be resolving. We have ruled out distal obstruction. He is tolerating diet and having bowel function. PLANS: No plans for surgical intervention at this time.
[2016-09-19] MEDS: LANTUS SUBQ SCH ×2 (09:39→21:20)
[2016-09-19] MEDS: PRISTIQ ER PO SCH (09:39)
[2016-09-19] MEDS: MONOPRIL PO SCH (09:39)
[2016-09-19] MEDS: SYNTHROID PO SCH (09:40)
[2016-09-19] MEDS: ASPIRIN PO SCH (09:40)
[2016-09-19] MEDS: ELIQUIS PO SCH ×2 (09:40→21:19)
[2016-09-19] MEDS: LANOXIN PO SCH (09:40)
[2016-09-19] MEDS: MIRALAX PO SCH ×2 (09:40→21:19)
[2016-09-19] MEDS: ZETIA PO SCH (09:40)
[2016-09-19] MEDS: PERIDEX MT SCH ×2 (09:40→21:19)
[2016-09-19] MEDS: PERICOLACE PO SCH ×2 (09:40→21:19)
[2016-09-19] MEDS: PEN VK PO SCH ×2 (09:40→21:19)
[2016-09-19] MEDS: TOPROL XL PO SCH (09:40)
--- NOTE | 2016-09-19 14:39 | PROGRESS NOTE ---
DATE: 09/19/2016 SUBJECTIVE: Mr. Hernandez is feeling better. His tummy is soft. Bowels are moving. He is eating a little more. Blood sugars 196, 157, 189. OBJECTIVE: Vital signs: Today temp 97.8 degrees, pulse 80, respirations 18, blood pressure 120/57. Lungs: Clear in all lung aranda. Cardiovascular: Regular rhythm and rate without murmur or S3. Abdomen: Soft. Skin: Warm and dry. Intake and output: Good urine output. LAB: Blood sugars 196, 157, 189. ASSESSMENT AND PLAN: 1. Pseudo-obstruction, improvement. Advance diet as we can. 2. Serrano catheter still in place. 3. Left quadriceps tendon repair. 4. Morbid obesity. 5. Deconditioning, weakness. Going to pursue physical therapy. 6. We have treated him for a urinary tract infection and I believe we can stop his antibiotics now and see how we do. 7. He has underlying history of atrial fibrillation. He is on apixaban. He is back on that at 5 mg b.i.d. So I will stop his ceftriaxone. I am going to stop his peripheral nutrition as well.
[2016-09-19] MEDS: UROXATRAL PO SCH (21:19)
[2016-09-19] MEDS: PRAVACHOL PO SCH (21:19)
[2016-09-20] MEDS: PRILOSEC PO SCH (06:05)
[2016-09-20] MEDS: HUMULIN R SUBQ SCH ×4 (06:10→20:49)
[2016-09-20] MEDS: PERICOLACE PO SCH ×2 (08:32→20:49)
[2016-09-20] MEDS: MONOPRIL PO SCH (08:32)
[2016-09-20] MEDS: PRISTIQ ER PO SCH (08:32)
[2016-09-20] MEDS: ASPIRIN PO SCH (08:32)
[2016-09-20] MEDS: TOPROL XL PO SCH ×2 (08:32→20:51)
[2016-09-20] MEDS: SYNTHROID PO SCH (08:32)
[2016-09-20] MEDS: ZETIA PO SCH (08:32)
[2016-09-20] MEDS: LANOXIN PO SCH (08:32)
[2016-09-20] MEDS: PERIDEX MT SCH ×2 (08:32→22:29)
[2016-09-20] MEDS: PEN VK PO SCH ×2 (08:32→22:29)
[2016-09-20] MEDS: ELIQUIS PO SCH ×2 (08:32→20:49)
[2016-09-20] MEDS: LANTUS SUBQ SCH ×2 (08:33→20:49)
[2016-09-20] MEDS: MIRALAX PO SCH ×2 (08:33→20:49)
[2016-09-20 13:01] LABS: MANUAL DIFF NEEDED? NO
[2016-09-20 13:02] LABS: BASO% 0.3 % (0.0-0.8); EOS# 0.33 X1000 (0.0-0.7); EOS% 5.4 % (0.0-10.0); HEMATOCRIT 33.7 % (42.0-52.0); HEMOGLOBIN 10.4 g/dL (14.0-18.0); IMM GRAN# 0.03 X1000 (0.0-0.04); IMM GRAN% 0.5 % (0.0-0.5); LYMPH# 0.63 X1000 (1.2-3.4); LYMPH% 10.2 % (20.5-51.1); MCH 27.6 PG (27-31); MCHC 30.9 g/dL (33-37); MCV 89.4 FL (81-99); MONO# 0.51 X1000 (0.11-0.59); MONO% 8.3 % (1.7-9.3); MPV 12.4 FL (7.4-10.4); NEUT% 75.3 % (42.2-75.2); PLT 229 X1000 (130-400); RBC 3.77 XMIL (4.7-6.1)
[2016-09-20 13:25] LABS: CALCIUM 8.9 mg/dL (8.8-10.2)
--- NOTE | 2016-09-20 14:58 | PROGRESS NOTE ---
DATE: 09/20/2016 SUBJECTIVE: Patient is feeling fine. Denies any difficulty in breathing, fever or chills. OBJECTIVE: Vital Signs: Temperature 97.8 degrees, heart rate 84, respiratory rate 18, blood pressure 141/49 and O2 saturation 95% on room air. General: This is a 76-year-old male lying in bed in no acute distress. HEENT: Head is normocephalic, atraumatic. Anicteric sclerae and pale conjunctivae. Mucous membranes moist. Neck: Supple. No JVD noted. No carotid bruits. No lymphadenopathy. No thyromegaly. Cardiovascular: S1, S2 heard. No murmurs, gallops or rubs. Regular rate and rhythm. Respiratory: Clear bilaterally to auscultation. No work of breathing or using accessory muscles. Abdomen: Soft, distended but nontender to palpation. Bowel sounds present. No organomegaly. Extremities: No clubbing, cyanosis or edema. Peripheral pulses present in both legs. Neurological: Patient is alert and oriented and moves all 4 extremities. ASSESSMENT AND PLAN: 1. Pseudo obstruction. Patient has been followed by Dr. Dave from general surgery. They are not going to do any procedure on him. Also, patient reports having had one normal bowel movement. At this time, I think this condition is resolved. 2. Left quadriceps tendon repair. The patient will need definite rehab facility for complete healing process. 3. Deconditioning. As we mentioned before, patient will go to rehab facility. 4. Morbid obesity aware. 5. Overall, this patient is doing good so at this time I think this patient is ready to go. We will send this patient to rehab facility very soon.
[2016-09-20] MEDS: PRAVACHOL PO SCH (20:49)
[2016-09-20] MEDS: UROXATRAL PO SCH (22:29)
[2016-09-21 06:15] LABS: MANUAL DIFF NEEDED? NO
[2016-09-21 06:18] LABS: BASO% 0.4 % (0.0-0.8); EOS# 0.35 X1000 (0.0-0.7); EOS% 7.2 % (0.0-10.0); HEMATOCRIT 32.9 % (42.0-52.0); HEMOGLOBIN 10.1 g/dL (14.0-18.0); IMM GRAN# 0.02 X1000 (0.0-0.04); IMM GRAN% 0.4 % (0.0-0.5); LYMPH# 0.67 X1000 (1.2-3.4); LYMPH% 13.9 % (20.5-51.1); MCH 27.4 PG (27-31); MCHC 30.7 g/dL (33-37); MCV 89.4 FL (81-99); MONO# 0.49 X1000 (0.11-0.59); MONO% 10.1 % (1.7-9.3); MPV 12.6 FL (7.4-10.4); PLT 238 X1000 (130-400); RBC 3.68 XMIL (4.7-6.1)
[2016-09-21] MEDS: HUMULIN R SUBQ SCH ×4 (06:23→21:31)
[2016-09-21] MEDS: PRILOSEC PO SCH (06:23)
[2016-09-21 07:10] LABS: AGAP 9; BUN 24 mg/dL (8-22); CALCIUM 8.7 mg/dL (8.8-10.2); CHLORIDE 98 mmol/L (98-107); COSMO 274; SODIUM 136 mmol/L (136-145); TCO2 29 mmol/L (25-35)
[2016-09-21] MEDS: PRISTIQ ER PO SCH (08:19)
[2016-09-21] MEDS: PERICOLACE PO SCH ×2 (08:19→21:32)
[2016-09-21] MEDS: MIRALAX PO SCH ×2 (08:19→21:32)
[2016-09-21] MEDS: TOPROL XL PO SCH ×2 (08:19→21:33)
[2016-09-21] MEDS: MONOPRIL PO SCH (08:19)
[2016-09-21] MEDS: PERIDEX MT SCH ×2 (08:19→21:32)
[2016-09-21] MEDS: ASPIRIN PO SCH (08:20)
[2016-09-21] MEDS: SYNTHROID PO SCH (08:20)
[2016-09-21] MEDS: ELIQUIS PO SCH ×2 (08:20→21:32)
[2016-09-21] MEDS: ZETIA PO SCH (08:20)
[2016-09-21] MEDS: PEN VK PO SCH (08:20)
[2016-09-21] MEDS: LANOXIN PO SCH (08:20)
[2016-09-21] MEDS: LANTUS SUBQ SCH ×2 (09:13→21:31)
[2016-09-21] MEDS: NORCO-10 PO PRN (13:13)
--- NOTE | 2016-09-21 13:15 | PROGRESS NOTE ---
DATE: 09/21/2016 SUBJECTIVE: Patient is lying in bed in no acute distress. He denies complaints at present except for a rash on his upper extremities. He reports itching. He is still having good bowel movements, and tolerating his diet although he is not able to eat a large amount at a time. No reported abdominal pain. Generally patient is awake, alert, no acute distress. He is lying in the bed. He is working with physical therapy on getting up. He states he sat up today for approximately 2 hours this morning. Cardiovascular: S1, S2. Currently regular rate and rhythm. Respiratory: Essentially clear bilaterally. Abdomen: Is large but soft with positive bowel sounds. Nontender. Extremities: With some rash noted to his upper extremities bilaterally. Vital Signs: Temperature 97.5 degrees, pulse 69, respirations 19, blood pressure 142/61. LABORATORY: Hematology: White count 4.83, hemoglobin 10.1, hematocrit 32.9, MCV 89.4, platelets 238,000. Chemistry: Sodium 136, potassium 4.0, chloride 98, CO2 29, BUN 24, creatinine 1.1, and glucose 67. ASSESSMENT AND PLAN: 1. Pseudoobstruction resolving. We will continue to follow. He is also being followed by Dr. Dave. 2. Left quadriceps tendon repair. Continue to follow with Orthopedic. 3. Deconditioning. He is working with physical therapy and there are plans for him to transfer to rehab when appropriate. 4. Rash upper extremities most likely medication related. We will refer to hospitalist changing or adjusting his medications as needed. We will continue to follow. I have discussed this case with Dr. Flores. Dictated by ANGELA Hall for Wilfred Flores MD
--- NOTE | 2016-09-21 14:42 | PROGRESS NOTE ---
DATE: 09/21/2016 SUBJECTIVE: Patient is feeling fine. Reports having had 1 bowel movement today. No shortness of breath, palpitations, chest pain, or fever. OBJECTIVE: Vital signs: Temperature 97.5 degrees, heart rate 69, respiratory rate 19, blood pressure 142/61, O2 saturation 98% on room air. General: This is a 76-year-old male, lying in bed, in no acute distress. HEENT: Head is normocephalic, atraumatic. Neck: Supple. No JVD. Cardiovascular: S1, S2 heard. No murmurs, gallops, or rubs. Regular rate and rhythm. Respiratory: Clear bilaterally to auscultation. No work of breathing or using accessory muscles. Abdomen: Soft. Nontender to palpation. Bowel sounds present. No organomegaly. Extremities: No clubbing, cyanosis, or edema. Peripheral pulses present in both legs. Neurological: Patient is alert and oriented x3. Able to move 4 extremities. ASSESSMENT AND PLAN: 1. Pseudoobstruction. This condition has resolved. Patient is having bowel movements every day. He is not complaining any abdominal pain. 2. Left quadriceps tendon repair. Patient needs a rehab facility after discharge from the hospital. 3. Morbid obesity, aware. 4. Deconditioning. Patient is going to rehab. Overall this patient is doing good. Patient has been here in the hospital for 25 days and he is stable and fine to go. Unfortunately, social services assistant reports that they are unable to find a bed for him. We will see if they can get a bed for him before Monday, otherwise he will stay until next Monday at least.
[2016-09-21] MEDS: BENADRYL PO SCH ×2 (15:06→21:32)
[2016-09-21] MEDS ORDERED: SODIUM CHLORIDE 0.9% 10 ML ONE ×2 (16:43→16:44)
[2016-09-21] MEDS: PRAVACHOL PO SCH (21:32)
[2016-09-21] MEDS: UROXATRAL PO SCH (21:33)
[2016-09-22] MEDS: PRILOSEC PO SCH (06:06)
[2016-09-22] MEDS: HUMULIN R SUBQ SCH ×3 (06:29→17:19)
[2016-09-22 06:39] LABS: MANUAL DIFF NEEDED? NO
[2016-09-22 07:01] LABS: BASO% 0.2 % (0.0-0.8); EOS# 0.44 X1000 (0.0-0.7); EOS% 10.8 % (0.0-10.0); HEMOGLOBIN 9.3 g/dL (14.0-18.0); IMM GRAN# 0.02 X1000 (0.0-0.04); IMM GRAN% 0.5 % (0.0-0.5); LYMPH# 0.57 X1000 (1.2-3.4); LYMPH% 13.9 % (20.5-51.1); MCH 26.8 PG (27-31); MCV 89.3 FL (81-99); MONO# 0.46 X1000 (0.11-0.59); MONO% 11.2 % (1.7-9.3); MPV 12.3 FL (7.4-10.4); NEUT% 63.4 % (42.2-75.2); PLT 207 X1000 (130-400); RBC 3.47 XMIL (4.7-6.1)
[2016-09-22 07:11] LABS: CALCIUM 8.9 mg/dL (8.8-10.2); POTASSIUM 3.8 mmol/L (3.5-5.1)
[2016-09-22] MEDS: ASPIRIN PO SCH (09:29)
[2016-09-22] MEDS: ELIQUIS PO SCH ×2 (09:30→20:38)
[2016-09-22] MEDS: LANOXIN PO SCH (09:30)
[2016-09-22] MEDS: BENADRYL PO SCH ×3 (09:30→17:19)
[2016-09-22] MEDS: LANTUS SUBQ SCH ×2 (09:30→09:47)
[2016-09-22] MEDS: MONOPRIL PO SCH (09:31)
[2016-09-22] MEDS: MIRALAX PO SCH (09:31)
[2016-09-22] MEDS: PERICOLACE PO SCH ×2 (09:31→20:38)
[2016-09-22] MEDS: PRISTIQ ER PO SCH (09:32)
[2016-09-22] MEDS: SYNTHROID PO SCH (09:32)
[2016-09-22] MEDS: TOPROL XL PO SCH ×2 (09:32→20:38)
[2016-09-22] MEDS: ZETIA PO SCH (09:32)
[2016-09-22] MEDS: PERIDEX MT SCH ×2 (09:32→20:41)
[2016-09-22] MEDS: NORCO-10 PO PRN ×2 (12:06→19:11)
[2016-09-22] MEDS ORDERED: INSULIN PEN NEEDLES ONE (15:13)
--- NOTE | 2016-09-22 19:48 | PROGRESS NOTE ---
DATE: 09/22/2016 Patient is resting comfortably. He has just been moved from his bed to the chair by the lift team. He tells me that he had a bowel movement this morning and has felt better. He denies any abdominal pain or abdominal cramps. Discharge plan for him is either tomorrow or soon. At this point no GI symptoms need to be addressed. I have advised him to follow up with me in the office after discharge.
[2016-09-22] MEDS: UROXATRAL PO SCH (20:38)
[2016-09-22] MEDS: PRAVACHOL PO SCH (20:38)
--- NOTE | 2016-09-22 22:50 | DISCHARGE SUMMARY ---
ADMISSION DATE: 08/27/2016 DISCHARGE DATE: 09/22/2016 CONSULTATIONS: 1. Octavio Clement D.O., Orthopedics. 2. Allan Rausch M.D., Orthopedics. 3. Enio Dave M.D., General Surgery. 4. Abdirizak Engel M.D., Gastroenterology. 5. Al Cody M.D., Cardiology. PERTINENT PROCEDURES: 1. Head and cervical spine CT showed no acute bony injury or hemorrhage. 2. Knee x-ray shows no bony injury. 3. Thoracic spine x-ray showed no acute bony injury. 4. Lower extremity CT showed a large amount of metal artifact created from knee replacement. No acute bony injury identified on limited examination. 5. Lumbar spine x-ray showed extensive multilevel degenerative changes. No definite acute osseous abnormality. 6. Abdominopelvic CT showed marked distention of the colon and multiple loops of small bowel. A fairly small amount of fluid tracking around the liver and spleen and layering between loops of small bowel and colon. Contracted gallbladder and suggestion of cholelithiasis. 7. Barium enema showed severe dilatation of the small bowel and colon of uncertain origin. Severe fecal impaction at the ascending and transverse colon contrast enema. 8. Left quadriceps tendon repair performed by Dr. Rausch. 9. Colitis outside of the colon, possible pressure necrosis of infectious colitis, otherwise dilated colon decompressed. 10. Colonoscopy performed by mago Flores, limited views. 11. Echocardiogram showed an EF of 55-60%. DISCHARGE DIAGNOSES: 1. Colonic ileal pseudoobstruction status post orthopedic procedure status post, colonic decompression by GI resolving. Patient tolerating diet and having bowel function. 2. Left quadriceps tendon repair. The patient is being discharged to rehabilitation today. 3. Morbid obesity, aware. 4. Deconditioning. Patient going to rehabilitation. 5. Nonsustained ventricular tachycardia. Cardiology increased the patient's metoprolol. Rhythm has remained stable. HOSPITAL COURSE: Briefly, Mr. Fam Hernandez is a 76-year-old who presented to the emergency room after a fall at home. He could not get up. He had debilitating left knee pain. The patient is morbidly obese. 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 The patient had been having some left knee pain that was supposed to be worked up by Dr. Rausch about a week prior to him coming to the ED. The patient was experiencing some general weakness and deconditioning with the left knee pain and recent strain. Initial plan was to admit him, consult PT and get him set up to go to rehabilitation. Orthopedics was also consulted. The patient underwent several tests to the left extremity that did not show anything acute. However, Dr. Clement diagnosed the patient with a left quadriceps tendon rupture. The patient underwent a tendon repair by Dr. Rausch. Shortly thereafter patient developed a colonic ileus pseudoobstruction status post his orthopedic procedure. Patient did have a rectal tube and NG tube for decompression. He also underwent a barium enema to rule out any distal obstruction and also decompression with GI. Patient did not require any surgical intervention for his pseudoobstruction and/or ileus. Cardiology was also consulted for ventricular tachycardia, it was nonsustained. They increased his metoprolol. Patient has stayed in sinus rhythm with no further complications. The patient's diet was initially started. He is back up to a GI soft diet and is tolerating that well. He is having bowel movements daily. He has been working with physical therapy. The patient has been waiting approval for rehabilitation. He is appropriate for discharge today. He will be going to [facility]. VITAL SIGNS AT TIME OF DISCHARGE: Temperature is 97.9 degrees, heart rate 80, respirations 19, blood pressure 144/65, O2 is 98% on room air. DISCHARGE DIET: GI soft. DISCHARGE MEDICATIONS: As per NOV. FOLLOWUP: 1. The patient is being discharged to [facility]. 2. He will follow up with orthopedic surgeons in 4 weeks. 3. He can follow up with Dr. Yamel Phelps in 4 weeks. 4. He will call Dr. Enio Dave for any further appointments. 5. Patient can return to the ED for any worsening of symptoms. TOTAL TIME SPENT ON DISCHARGE: 45 minutes. Dictated by ANGELA Reyes for Timothy Ortiz MD
[2016-09-23] MEDS: HUMULIN R SUBQ SCH ×2 (02:07→06:19)
[2016-09-23] MEDS: MIRALAX PO SCH ×2 (02:08→09:23)
[2016-09-23] MEDS: LANTUS SUBQ SCH ×2 (02:08→09:22)
[2016-09-23 07:01] LABS: CALCIUM 8.8 mg/dL (8.8-10.2); POTASSIUM 3.8 mmol/L (3.5-5.1)
[2016-09-23 07:47] VITALS: BP 161/76
[2016-09-23] MEDS: PRILOSEC PO SCH (09:21)
[2016-09-23] MEDS: BENADRYL PO SCH (09:21)
[2016-09-23] MEDS: ASPIRIN PO SCH (09:21)
[2016-09-23] MEDS: LANOXIN PO SCH (09:22)
[2016-09-23] MEDS: ELIQUIS PO SCH (09:22)
[2016-09-23] MEDS: PERICOLACE PO SCH (09:23)
[2016-09-23] MEDS: TOPROL XL PO SCH (09:23)
[2016-09-23] MEDS: PRISTIQ ER PO SCH (09:23)
[2016-09-23] MEDS: MONOPRIL PO SCH (09:23)
[2016-09-23] MEDS: SYNTHROID PO SCH (09:23)
[2016-09-23] MEDS: ZETIA PO SCH (09:23)
[2016-09-23] MEDS: PERIDEX MT SCH (09:26)
== END 2016-09-23 10:40 | DRG 500 ==
LOC: EDBD → ED 10:45 → EDIPHOLD 17:50 → 4N 18:44 → 3N 09-05 08:44 → ICU 09-08 18:46 → 3N 09-15 12:35
PROVIDERS: ATTEND Internal Medicine
PROC: 0LQM0ZZ Repair Left Upper Leg Tendon, Open Approach (ICD-10-PCS; principal; 2016-08-29 14:50)
PROC: 0D7E8ZZ Dilation of Large Intestine, Via Natural or Artificial Opening Endoscopic (ICD-10-PCS; 2016-09-07 14:55)
PROC: 02HV33Z Insertion of Infusion Device into Superior Vena Cava, Percutaneous Approach (ICD-10-PCS; 2016-09-12)
PROC: 3E0436Z Introduction of Nutritional Substance into Central Vein, Percutaneous Approach (ICD-10-PCS; 2016-09-12)
DX: S76.112A Strain of left quadriceps muscle, fascia and tendon, initial encounter (principal); G92 Toxic encephalopathy; I47.2 Ventricular tachycardia; I13.0 Hypertensive heart and chronic kidney disease with heart failure and stage 1 through stage 4 chronic kidney disease, or unspecified chronic kidney disease; I50.32 Chronic diastolic (congestive) heart failure; K56.7 Ileus, unspecified; Z68.41 Body mass index [BMI] 40.0-44.9, adult; K91.89 Other postprocedural complications and disorders of digestive system; N39.0 Urinary tract infection, site not specified; E11.22 Type 2 diabetes mellitus with diabetic chronic kidney disease; E11.8 Type 2 diabetes mellitus with unspecified complications; N18.3 Chronic kidney disease, stage 3 (moderate); I48.91 Unspecified atrial fibrillation; E03.9 Hypothyroidism, unspecified; W19.XXXA Unspecified fall, initial encounter; I25.10 Atherosclerotic heart disease of native coronary artery without angina pectoris; E66.01 Morbid (severe) obesity due to excess calories; G47.33 Obstructive sleep apnea (adult) (pediatric); E78.5 Hyperlipidemia, unspecified; G89.29 Other chronic pain; M54.9 Dorsalgia, unspecified; Z96.653 Presence of artificial knee joint, bilateral; T40.2X5A Adverse effect of other opioids, initial encounter; M51.36 Other intervertebral disc degeneration, lumbar region; M19.90 Unspecified osteoarthritis, unspecified site; I87.2 Venous insufficiency (chronic) (peripheral); E87.6 Hypokalemia; B96.89 Other specified bacterial agents as the cause of diseases classified elsewhere; L27.1 Localized skin eruption due to drugs and medicaments taken internally; K52.9 Noninfective gastroenteritis and colitis, unspecified; Z79.2 Long term (current) use of antibiotics; Z95.1 Presence of aortocoronary bypass graft; Z79.84 Long term (current) use of oral hypoglycemic drugs; Z79.1 Long term (current) use of non-steroidal anti-inflammatories (NSAID); Z79.82 Long term (current) use of aspirin; Z79.4 Long term (current) use of insulin; Z79.899 Other long term (current) drug therapy; Z79.02 Long term (current) use of antithrombotics/antiplatelets; Z85.46 Personal history of malignant neoplasm of prostate
CPT/HCPCS: 36569; 51702; 70450; 71010; 72072; 72100; 72125; 72170; 73560; 73700; 74000; 74020; 74176; 74270; 80048; 80053; 80061; 80162; 81001; 82550; 82607; 82948; 83036; 83721; 83735; 84100; 84439; 84443; 84484; 85025; 85027; 85610; 85730; 86850; 86900; 86901; 87077; 87088; 87186; 87324; 93005; 93010; 93308; 94760; 94761; 94762; 94799; 96374; J0330; J0690; J0696; J1170; J2250; J2270; J2405; J3010; J3475; J3480; J7030; J7050; J7120; Q9958; S0020; 97001-GP; 97110-GP; 97116-GP; 97530-GP